=== PATIENT | female | born 1950 | race Caucasian/White ===

== ENCOUNTER → 2018-01-30 | Outpatient (CLI) | payer OTHER ==
[~2018-01-30] MED LIST: AMBIEN10 MG PO; BYSTOLIC10 MG PO; CLONIDINE HCL0.1 MG PO; GABAPENTIN300 MG PO; GLIPIZIDE5 MG PO; IOPAMIDOL 370 MG/ML 200 ML INFUS..BTL INJ ONE; LANTUS 3ML100 UNITS/ SC; LASIX20 MG PO; LEVOTHYROXINE50 MCG PO; LOSARTAN POTAS100 MG PO; METFORMIN HCL500 M2 PO; NORCO 5-325 TA1 EACH PO; PLAVIX75 MG PO; SIMVASTATIN40 MG PO; SODIUM CHLORIDE 0.9% 50ML 50 ML ONE; SPIRONOLACTONE25 MG PO; ZOFRAN ODT4 MG
[2018-01-30 08:27] LABS: BLOOD UREA NITROGEN 15 mg/dL (7-26); BUN/CREATININE RATIO 17 (6-25); CREATININE, SERUM 0.86 mg/dL (0.57-1.11); EST GLOMERULAR FILTRATION RATE > 60 ML/MIN (60-)
--- NOTE | 2018-01-31 11:46 | Diagnostic Imaging Report ---
History: Lightheaded Comparison studies: None Technique: Sagittal T2; axial DWI, FLAIR, MPGR, T1, Coronal FLAIR. Intravenous contrast: None Findings: Scalp: Normal in signal . No masses . Bone marrow: Normal in signal intensity. Extra-axial: No masses, no fluid collections. Brain sulci: Appropriate for age. Ventricles: Normal in size . No hydrocephalus . Parenchyma: Scattered T2/FLAIR hyperintensities of the periventricular and deep white matter No masses, hemorrhage, acute or chronic vascular insults. Suprasellar region: No abnormalities. Craniocervical junction: No abnormalities. Patent foramen magnum. No Chiari one malformation. Vessels: Normal flow-voids in the arteries and sinuses. Bilateral cataract surgery changes. IMPRESSION: 1. No acute abnormalities. 2. Mild chronic microvascular ischemic changes of the white matter. Mild age-appropriate volume loss. Signed by: DR James Reis M.D. on 01/31/2018 11:42 AM
--- NOTE | 2018-01-31 12:17 | Diagnostic Imaging Report ---
History:Lightheaded. Left ICA stroke, Comparison studies:MRI brain 01/30/2018 Technique: Axial images were obtained from the thoracic inlet. Coronal and sagittal images reconstructed from the axial data. Intravenous contrast: 100 cc of Omnipaque 300. Findings: Percentage of stenosis will be based on the NASCET criteria Aortic arch and major vessels: Patent. Nonstenotic atherosclerotic calcifications of the aortic arch. Common origin of the brachiocephalic trunk and left common carotid artery. Less than 10% stenosis of the left proximal brachiocephalic trunk secondary to calcified and noncalcified plaque. Less than 10% stenosis at the origin of the left common carotid artery. Common carotid arteries: Patent. Calcified plaque with less than 10% stenosis. Right internal carotid artery: Patent. Noncalcified plaque at the bulb with less than 20% stenosis nonstenotic atherosclerotic calcification at the distal cervical internal carotid artery. Atherosclerotic calcifications at the siphon with less than 30% stenosis at. Left internal carotid artery: Patent. Calcified plaque at the bulb results in 40-50% stenosis. Nonstenotic atherosclerotic calcification at the distal cervical internal carotid artery. Atherosclerotic calcification at the siphon with less than 20% stenosis. Hypoplastic right A1. Normal caliber of the left A1 and bilateral distal ACAs. Patent bilateral MCAs. Right vertebral artery: Patent. . Left vertebral artery: Patent. Punctate nonstenotic atherosclerotic calcification at the distal V1 and mid V2 segment. Basilar artery: Patent. No abnormalities. Posterior cerebral arteries: Patent. No abnormalities. Anatomical variants: Acom: Patent . Pcoms: Patent. Vertebral arteries: Col-dominant Centrilobular emphysematous changes of both lung apices. Uncinate processes and facet hypertrophy at C4-C5 and C5-C6 results in moderate right, mild left foraminal narrowing. IMPRESSION: Cervical CTA: 1. Moderate stenosis at the left carotid bulb. Other atherosclerotic calcifications at the neck arteries with mild stenosis as described above. Intracranial CTA: 1. No hemodynamically significant stenosis of the jackson of Dominguez. Signed by: DR James Reis M.D. on 01/31/2018 12:14 PM
== END ==
LOC: CT 07:24
PROVIDERS: ATTEND Psychiatry & Neurology Clinical Neurophysiology
DX: I63.232 Cerebral infarction due to unspecified occlusion or stenosis of left carotid arteries (principal)
CPT/HCPCS: 36415; 70496; 70498; 70551; 82565; 84520; Q9967

== ENCOUNTER 2018-07-18 04:15 | Emergency (ER) | payer OTHER ==
[~2018-07-18] VITALS: Ht 154.9 cm; Wt 68.0 kg
[~2018-07-18 04:15] MED LIST changes: -IOPAMIDOL 370 MG/ML 200 ML INFUS..BTL INJ ONE; -SODIUM CHLORIDE 0.9% 50ML 50 ML ONE
[2018-07-18] MEDS ORDERED: ACETAMINOPHEN 325 MG TAB PO ONE (04:30)
[2018-07-18 04:45] LABS: CLARITY,URINE CLOUDY (CLEAR); COLOR,URINE YELLOW (YELLOW)
[2018-07-18 04:46] LABS: BILIRUBIN,URINE NEGATIVE (NEGATIVE); KETONES,URINE NEGATIVE (NEGATIVE); LEUKOCYTE ESTERASE ,URINE 1+ (NEGATIVE); NITRITE,URINE POSITIVE (NEGATIVE); PROTEIN,URINE DIPSTICK 3+ (NEGATIVE); URINE UROBILINOGEN 0.2 mg/dL (0.2 - 1)
[2018-07-18 05:01] LABS: BACTERIA,URINE FEW /HPF; EPITHELIAL CELLS,URINE FEW /LPF; RBC,URINE >50 /HPF (0-5); TRANSITIONAL EPI CELLS,URINE FEW; WBC,URINE (MAN) >50 /HPF (0-5)
[2018-07-18 05:08] LABS: BASOPHILS % 0.3 % (0.0-1.0); EOSINOPHILS # (AUTO) 0.1 (0.0-0.4); EOSINOPHILS % 0.7 % (0.0-6.0); HEMOGLOBIN 10.8 g/dL (12.0-16.0); LYMPHOCYTES # (AUTO) 0.8 (1.0-3.2); LYMPHOCYTES % 8.7 % (18.0-39.1); MEAN CORPUSCULAR HEMOGLOBIN 28.5 pg (28-32); MEAN CORPUSCULAR HGB CONC 32.7 g/dL (31-35); MEAN CORPUSCULAR VOLUME 87.1 fL (81-99); MONOCYTES # (AUTO) 0.5 (0.2-0.8); MONOCYTES % 5.6 % (4.4-11.3); NEUTROPHILS # (AUTO) 8.1 (2.1-6.9); NEUTROPHILS % 84.1 % (38.7-80.0); PLATELET COUNT 221 x10e3/uL (140-360); RED BLOOD COUNT 3.79 x10e6/uL (3.6-5.1); RED CELL DISTRIBUTION WIDTH 14.2 % (11.7-14.4)
[2018-07-18] MEDS ORDERED: CEFTRIAXONE SOD 1 GM VIAL IV ONE (05:15)
[2018-07-18 05:38] LABS: ALBUMIN 3.5 g/dL (3.5-5.0); ALBUMIN/GLOBULIN RATIO 0.9 (0.8-2.0); ANION GAP 17.3 mmol/L (8-16); CALCIUM 9.4 mg/dL (8.4-10.2); CREATININE, SERUM 1.04 mg/dL (0.57-1.11); POTASSIUM 4.3 mmol/L (3.5-5.1)
[2018-07-18] MEDS ORDERED: CLONIDINE HCL 0.1 MG TAB PO ONE (06:00)
[2018-07-18 06:27] VITALS: BP 195/75
== END 2018-07-18 06:52 | disposition home or self-care (01) ==
LOC: ER 04:15
DX: R30.0 Dysuria (principal); N30.91 Cystitis, unspecified with hematuria; E11.9 Type 2 diabetes mellitus without complications; I10 Essential (primary) hypertension; I50.9 Heart failure, unspecified; E03.9 Hypothyroidism, unspecified; D64.9 Anemia, unspecified; E78.00 Pure hypercholesterolemia, unspecified
CPT/HCPCS: 36415; 80053; 81001; 85025; 87086; 87186; 99284; J0696

== ENCOUNTER 2018-08-13 08:25 | Inpatient (IN) | payer OTHER ==
[2018-08-12 11:26] LABS: BASOPHILS % 0.7 % (0.0-1.0); EOSINOPHILS # (AUTO) 0.1 (0.0-0.4); EOSINOPHILS % 2.2 % (0.0-6.0); HEMATOCRIT 35.9 % (34.2-44.1); HEMOGLOBIN 11.6 g/dL (12.0-16.0); LYMPHOCYTES % 23.3 % (18.0-39.1); MEAN CORPUSCULAR HEMOGLOBIN 28.4 pg (28-32); MEAN CORPUSCULAR HGB CONC 32.3 g/dL (31-35); MEAN CORPUSCULAR VOLUME 87.8 fL (81-99); MONOCYTES # (AUTO) 0.4 (0.2-0.8); NEUTROPHILS # (AUTO) 2.9 (2.1-6.9); NEUTROPHILS % 64.1 % (38.7-80.0); PLATELET COUNT 170 x10e3/uL (140-360); RED BLOOD COUNT 4.09 x10e6/uL (3.6-5.1); RED CELL DISTRIBUTION WIDTH 14.3 % (11.7-14.4)
[2018-08-12 11:39] LABS: INR 1.05; PARTIAL THROMBOPLASTIN TIME 27.1 seconds (23.8-35.5); PROTHROMBIN TIME 12.9 seconds (11.9-14.5)
[2018-08-12 11:47] LABS: ALBUMIN 3.6 g/dL (3.5-5.0); ANION GAP 17.9 mmol/L (8-16); CALCIUM 9.8 mg/dL (8.4-10.2); CREATININE, SERUM 1.04 mg/dL (0.57-1.11); POTASSIUM 4.9 mmol/L (3.5-5.1)
--- NOTE | 2018-08-12 12:04 | Diagnostic Imaging Report ---
EXAMINATION: CHEST 2 VIEWS INDICATION: Pre-op COMPARISON: None FINDINGS: TUBES and LINES: None. LUNGS: Lungs are well inflated. Lungs are clear. There is no evidence of pneumonia or pulmonary edema. PLEURA: No pleural effusion or pneumothorax. HEART AND MEDIASTINUM: Mild enlargement of the cardiomediastinal silhouette. BONES AND SOFT TISSUES: No acute osseous lesion. Soft tissues are unremarkable. UPPER ABDOMEN: No free air under the diaphragm. Surgical clips project over the upper abdomen. IMPRESSION: No acute radiographic abnormality. Signed by: Dr. Gurmeet Mays MD on 08/12/2018 12:00 PM
[~2018-08-13] VITALS: Ht 154.9 cm; Wt 72.6 kg
[2018-08-13] VITALS (46 sets, daily range): BP systolic 148–209; BP diastolic 53–97
[~2018-08-13 08:25] MED LIST changes: +AMLODIPINE BESYL5 MG PO; +ASPIRIN325 MG PO; +HYDRALAZINE HCL25 MG PO; +IRON PO; +LEVEMIR100 UNIT/1 SC; +LEVOXYL137 MCG PO; +TERAZOSIN HCL2 MG PO
[2018-08-13] MEDS ORDERED: LIDOCAINE HCL 2% LOCAL 20 ML VIAL ONE (11:58)
[2018-08-13] MEDS ORDERED: HEPARIN SOD/SOD CHLORIDE 2,000 ML ONE (11:58)
[2018-08-13] MEDS ORDERED: SODIUM CHLORIDE 0.9% 1000ML 1,000 ML ONE (11:58)
[2018-08-13] MEDS ORDERED: MIDAZOLAM HCL 2 MG/2 ML VIAL ONE (11:58)
[2018-08-13] MEDS ORDERED: FENTANYL CITRATE/PF 100MCG/2 ML INJ ONE (11:58)
[2018-08-13] MEDS ORDERED: IOPAMIDOL 370 MG/ML 200 ML INFUS..BTL INJ ONE ×2 (11:58→12:30)
[2018-08-13] MEDS ORDERED: BIVALIRUDIN 250 MG/VIAL IV ONE (12:29)
[2018-08-13] MEDS ORDERED: SODIUM CHLORIDE 0.9% 50ML 50 ML ONE (12:29)
[2018-08-13] MEDS ORDERED: NITROGLYCERIN/D5W 200 MCG/ML 250 ML ONE (12:34)
[2018-08-13] MEDS ORDERED: ASPIRIN 325 MG TAB ONE (13:11)
[2018-08-13] MEDS ORDERED: CLOPIDOGREL BISULFATE 75 MG TAB ONE (13:11)
[2018-08-13] MEDS ORDERED: ACETAMINOPHEN 325 MG TAB PO PRN ×2 (14:30→20:45)
[2018-08-13] MEDS ORDERED: NEBIVOLOL 10 MG TAB PO SCH (15:00)
[2018-08-13] MEDS ORDERED: HYDRALAZINE HCL 25 MG TAB PO SCH (15:00)
[2018-08-13] MEDS ORDERED: SODIUM CHLORIDE 0.9% 1000ML 1,000 ML IV SCH ×2 (15:00→15:15)
[2018-08-13] MEDS ORDERED: HYDRALAZINE HCL 20 MG/ML VIAL IV PRN (15:15)
[2018-08-13] MEDS ORDERED: FERROUS SULFATE 325 MG TAB PO SCH (16:00)
[2018-08-13] MEDS ORDERED: GLIPIZIDE 5 MG TAB PO SCH (16:30)
[2018-08-13] MEDS ORDERED: GABAPENTIN 300 MG CAP PO SCH (17:00)
[2018-08-13] MEDS ORDERED: CLONIDINE HCL 0.1 MG TAB PO SCH ×2 (17:00→21:00)
[2018-08-13] MEDS ORDERED: TERAZOSIN HCL 1 MG CAP PO SCH (17:00)
[2018-08-13] MEDS: HYDRALAZINE HCL 20 MG/ML VIAL IV PRN (19:09)
--- NOTE | 2018-08-13 20:04 | Operative Report ---
DATE OF PROCEDURE: August 13, 2018 PROCEDURES PERFORMED 1. Left heart catheterization. 2. Left coronary angiogram. 3. LV gram. 4. Stent placement in the left circumflex coronary artery. INDICATION: Abnormal stress test. History of CAD. BLOOD LOSS: About 8 mL. ANESTHESIA: 2% lidocaine for local anesthesia. Fentanyl and Versed for conscious sedation. DESCRIPTION OF PROCEDURE: After informed consent, patient was brought to the cardiac catheterization laboratory and placed on the table. Both groins were painted and draped in a sterile fashion. Lidocaine injected to the right groin for local anesthesia. The right femoral artery was accessed by Seldinger technique and a 5-Angolan sheath was placed in the right femoral artery. The left main artery was cannulated using a JL4 5-Angolan catheter. Coronary angiogram was performed and images obtained in multiple views. The right coronary artery was cannulated using a 3DRC 5-Angolan catheter. Coronary angiogram was performed and images obtained in multiple views. LV gram was performed using a pigtail catheter. After viewing the images, it was decided to intervene on the 90% calcified mid left circumflex lesion. The 5-Angolan sheath was exchanged for a 6-Angolan sheath over a guidewire. The left main was cannulated using a XP3.5 6-Angolan guide. A [employer] wire was manipulated and placed in the distal left circumflex artery. A 2.5 x 12 mm balloon was advanced over the wire and attempts were made to cross the lesion. However, the balloon would not advance beyond the proximal left circumflex. The balloon was removed and a 1.5 mm x 12 mm Emerge balloon was advanced over the wire and the lesion was dilated multiple times at 8 to 10 atmospheres for about 20 to 25 seconds. The balloon was removed and subsequently a 2.5 x 15 mm Emerge balloon was advanced over the wire and the lesion was dilated at 8 atmospheres for about 20 seconds. Then at 3 x 18 mm Resolute Juarez drug-eluting stent was deployed across the lesion at 12 atmospheres for about 20 seconds. This was the normal pressure. All this was performed under constant fluoroscopic guidance. Patient was given Angiomax, aspirin and clopidogrel during the procedure. The patient had a right coronary artery lesion, however, the lesion was not intervened at the current time due to concern about contrast burden in an elderly lady. Patient tolerated the procedure without any complications. REPORT LEFT MAIN: This is of normal caliber with luminal irregularities. LEFT ANTERIOR DESCENDING: Normal caliber with luminal irregularities. LEFT CIRCUMFLEX: Normal caliber. Has a 90% calcified lesion in the mid left circumflex. RIGHT CORONARY ARTERY: Normal caliber. The stents in the mid and distal right coronary artery are patent. There is a lesion between the stents which appears to be about 90%. LV-GRAM: It is a poor-quality LV due to hand injection. Overall EF is about 50%. Balloon used is a 1.5 x 12 mm Emerge, a 2.5 x 12/15 mm Emerge. Stent used is a 3 x 18 mm Resolute Juarez drug-eluting stent which was deployed across the mid left circumflex. There was 0% residual stenosis and GUERA-3 flow noted. PLAN: PCI of the right coronary artery in a few weeks. Job#: [id number]
[2018-08-13] MEDS: HYDRALAZINE HCL 25 MG TAB PO SCH (20:33)
[2018-08-13] MEDS: CLONIDINE HCL 0.1 MG TAB PO SCH (20:34)
[2018-08-13] MEDS: GABAPENTIN 300 MG CAP PO SCH (20:43)
[2018-08-13] MEDS ORDERED: SIMVASTATIN 40 MG TAB PO SCH (21:00)
[2018-08-13] MEDS ORDERED: INSULIN DETEMIR 100 UNIT/ML PEN SQ SCH (21:00)
[2018-08-13] MEDS: GLIPIZIDE 5 MG TAB PO SCH (21:22)
[2018-08-13] MEDS: TERAZOSIN HCL 1 MG CAP PO SCH (21:22)
[2018-08-13] MEDS ORDERED: LORAZEPAM INJ 2 MG/ML VIAL IV NR (21:30)
[2018-08-14] VITALS (53 sets, daily range): BP systolic 125–204; BP diastolic 53–100
[2018-08-14] MEDS: HYDRALAZINE HCL 20 MG/ML VIAL IV PRN ×2 (02:13→12:20)
[2018-08-14 04:38] LABS: BASOPHILS % 0.2 % (0.0-1.0); EOSINOPHILS # (AUTO) 0.1 (0.0-0.4); EOSINOPHILS % 1.4 % (0.0-6.0); HEMATOCRIT 29.6 % (34.2-44.1); HEMOGLOBIN 9.8 g/dL (12.0-16.0); LYMPHOCYTES # (AUTO) 0.7 (1.0-3.2); LYMPHOCYTES % 16.2 % (18.0-39.1); MEAN CORPUSCULAR HEMOGLOBIN 28.3 pg (28-32); MEAN CORPUSCULAR HGB CONC 33.1 g/dL (31-35); MEAN CORPUSCULAR VOLUME 85.5 fL (81-99); MONOCYTES # (AUTO) 0.4 (0.2-0.8); NEUTROPHILS % 71.5 % (38.7-80.0); PLATELET COUNT 137 x10e3/uL (140-360); RED BLOOD COUNT 3.46 x10e6/uL (3.6-5.1); RED CELL DISTRIBUTION WIDTH 14.3 % (11.7-14.4)
[2018-08-14 04:58] LABS: ANION GAP 13.8 mmol/L (8-16); BLOOD UREA NITROGEN 18 mg/dL (7-26); BUN/CREATININE RATIO 21 (6-25); CALCIUM 8.4 mg/dL (8.4-10.2); CARBON DIOXIDE 25 mmol/L (22-29); CHLORIDE 105 mmol/L (98-107); CHOL/HDL RATIO 3.4 (3.0-3.6); CHOLESTEROL 118 MD/DL (0-199); CREATININE, SERUM 0.86 mg/dL (0.57-1.11); EST GLOMERULAR FILTRATION RATE > 60 ML/MIN (60-); GLUCOSE 250 mg/dL (74-118); HDL CHOLESTEROL 35 MG/DL (40-60); LDL CHOLESTEROL 32 MG/DL (60-130); POTASSIUM 3.8 mmol/L (3.5-5.1); SODIUM 140 mmol/L (136-145); TRIGLYCERIDES 257 MG/DL (0-149)
[2018-08-14] MEDS ORDERED: LEVOTHYROXINE SODIUM 100 MCG TAB PO SCH (06:00)
[2018-08-14] MEDS ORDERED: LEVOTHYROXINE SODIUM 75 MCG TAB PO SCH (06:00)
[2018-08-14] MEDS: HYDRALAZINE HCL 25 MG TAB PO SCH (07:36)
[2018-08-14] MEDS: GLIPIZIDE 5 MG TAB PO SCH (07:37)
[2018-08-14] MEDS: GABAPENTIN 300 MG CAP PO SCH (07:37)
[2018-08-14] MEDS: TERAZOSIN HCL 1 MG CAP PO SCH (07:37)
[2018-08-14] MEDS: CLONIDINE HCL 0.1 MG TAB PO SCH (07:38)
[2018-08-14] MEDS ORDERED: CLOPIDOGREL BISULFATE 75 MG TAB PO SCH ×2 (09:00)
[2018-08-14] MEDS ORDERED: ASPIRIN 325 MG TAB EC PO SCH ×2 (09:00)
[2018-08-14] MEDS ORDERED: FERROUS SULFATE 325 MG TAB PO SCH (09:00)
[2018-08-14] MEDS ORDERED: NEBIVOLOL 10 MG TAB PO SCH (09:00)
[2018-08-14] MEDS ORDERED: AMLODIPINE BESYLATE 5 MG TAB PO SCH ×2 (09:00)
[2018-08-14] MEDS ORDERED: HYDRALAZINE HCL 20 MG/ML VIAL IV ONE (11:00)
[2018-08-14] MEDS ORDERED: HYDRALAZINE HCL 20 MG/ML VIAL IV STA (12:19)
[2018-08-14] MEDS ORDERED: LABETALOL HCL 5 MG/ML 20ML VIAL IV STA (13:47)
[2018-08-14] MEDS ORDERED: AMLODIPINE BESYLATE 5 MG TAB PO ONE (14:00)
[2018-08-14] MEDS ORDERED: ALPRAZOLAM 0.25 MG TAB PO ONE (14:30)
[2018-08-14] MEDS ORDERED: SPIRONOLACTONE 25 MG TAB PO SCH (14:30)
[2018-08-14] MEDS ORDERED: GABAPENTIN 300 MG CAP PO SCH (21:00)
[2018-08-15] MEDS ORDERED: LOSARTAN POTASSIUM 100 MG TAB PO SCH (09:00)
== END 2018-08-14 18:28 | disposition home or self-care (01) | DRG 247 ==
LOC: CATH LAB 08:25 → PACU V 13:55 → ICU 14:10
PROC: 027034Z Dilation of Coronary Artery, One Artery with Drug-eluting Intraluminal Device, Percutaneous Approach (ICD-10-PCS; principal; 2018-08-13)
PROC: 4A023N7 Measurement of Cardiac Sampling and Pressure, Left Heart, Percutaneous Approach (ICD-10-PCS; 2018-08-13)
PROC: B2111ZZ Fluoroscopy of Multiple Coronary Arteries using Low Osmolar Contrast (ICD-10-PCS; 2018-08-13)
PROC: B2151ZZ Fluoroscopy of Left Heart using Low Osmolar Contrast (ICD-10-PCS; 2018-08-13)
DX: R94.39 Abnormal result of other cardiovascular function study (principal)
CPT/HCPCS: 36415; 71046; 80048; 80053; 80061; 82948; 85025; 85610; 85730; 92928; 93005; 93458; 93971; C1874; J0360; J0583; J2001; J2060; J2250; J7030; Q9967

== ENCOUNTER 2018-09-10 06:26 | Inpatient (IN) | payer OTHER ==
[2018-09-08 15:02] LABS: BASOPHILS % 0.2 % (0.0-1.0); EOSINOPHILS # (AUTO) 0.1 (0.0-0.4); EOSINOPHILS % 2.2 % (0.0-6.0); HEMOGLOBIN 10.4 g/dL (12.0-16.0); LYMPHOCYTES # (AUTO) 1.3 (1.0-3.2); MEAN CORPUSCULAR HEMOGLOBIN 28.2 pg (28-32); MEAN CORPUSCULAR HGB CONC 31.5 g/dL (31-35); MEAN CORPUSCULAR VOLUME 89.4 fL (81-99); MONOCYTES # (AUTO) 0.5 (0.2-0.8); MONOCYTES % 10.2 % (4.4-11.3); NEUTROPHILS # (AUTO) 2.6 (2.1-6.9); NEUTROPHILS % 57.5 % (38.7-80.0); PLATELET COUNT 208 x10e3/uL (140-360); RED BLOOD COUNT 3.69 x10e6/uL (3.6-5.1); RED CELL DISTRIBUTION WIDTH 15.2 % (11.7-14.4)
[2018-09-08 15:15] LABS: INR 0.92; PROTHROMBIN TIME 13.2 seconds (11.9-14.5)
[2018-09-08 15:16] LABS: PARTIAL THROMBOPLASTIN TIME 29.1 seconds (23.8-35.5)
[2018-09-08 15:24] LABS: ALBUMIN 3.8 g/dL (3.5-5.0); CALCIUM 9.6 mg/dL (8.4-10.2); CREATININE, SERUM 0.96 mg/dL (0.57-1.11)
[~2018-09-10] VITALS: Ht 154.9 cm; Wt 72.6 kg
[2018-09-10] VITALS (15 sets, daily range): BP systolic 169–197; BP diastolic 65–86
[2018-09-10] MEDS ORDERED: MIDAZOLAM HCL 2 MG/2 ML VIAL ONE (07:15)
[2018-09-10] MEDS ORDERED: FENTANYL CITRATE/PF 100MCG/2 ML INJ ONE (07:15)
[2018-09-10] MEDS ORDERED: HEPARIN SOD (PORCINE) 1000 UNIT/ML 30ML ONE (07:15)
[2018-09-10] MEDS ORDERED: IOPAMIDOL 370 MG/ML 200 ML INFUS..BTL INJ ONE (07:16)
[2018-09-10] MEDS ORDERED: SODIUM CHLORIDE 0.9% 1000ML 1,000 ML ONE (07:16)
[2018-09-10] MEDS ORDERED: NITROGLYCERIN/D5W 200 MCG/ML 250 ML ONE (07:16)
[2018-09-10] MEDS ORDERED: HEPARIN SOD/SOD CHLORIDE 2,000 ML ONE (07:16)
[2018-09-10] MEDS ORDERED: LIDOCAINE HCL 1% LOCAL INJ 20 ML VIAL ONE (07:16)
[2018-09-10] MEDS ORDERED: BIVALRIUDIN 250 MG/VIAL VIAL IV ONE (07:49)
[2018-09-10] MEDS ORDERED: SODIUM CHLORIDE 0.9% 50ML 50 ML ONE (07:50)
[2018-09-10] MEDS ORDERED: HYDRALAZINE HCL 20 MG/ML VIAL ONE (07:59)
[2018-09-10] MEDS ORDERED: CLOPIDOGREL BISULFATE 75 MG TAB ONE (08:42)
[2018-09-10] MEDS ORDERED: ASPIRIN 325 MG TAB ONE (08:43)
[2018-09-10] MEDS: HYDRALAZINE HCL 25 MG TAB PO SCH (11:37)
[2018-09-10] MEDS: TERAZOSIN HCL 1 MG CAP PO SCH (11:38)
[2018-09-10] MEDS: CLONIDINE HCL 0.1 MG TAB PO SCH ×2 (11:38→20:25)
[2018-09-10] MEDS: GABAPENTIN 300 MG CAP PO SCH ×2 (11:38→20:26)
[2018-09-10] MEDS ORDERED: GLIPIZIDE 5 MG TAB PO SCH ×2 (12:00→17:45)
[2018-09-10] MEDS ORDERED: HYDRALAZINE HCL 20 MG/ML VIAL IV ONE (12:15)
[2018-09-10] MEDS ORDERED: HYDRALAZINE HCL 20 MG/ML VIAL IV PRN (17:30)
[2018-09-10] MEDS ORDERED: HYDROCODONE/APAP 10MG-325MG TAB PO PRN (18:15)
[2018-09-10] MEDS ORDERED: SIMVASTATIN 40 MG TAB PO SCH (21:00)
--- NOTE | 2018-09-10 22:58 | Operative Report ---
DATE OF PROCEDURE: September 10, 2018 PROCEDURES: 1. Left heart catheterization. 2. Selective coronary angiogram. 3. Percutaneous coronary intervention/stent placement of the right coronary artery. INDICATION: Coronary artery disease. ANESTHESIA: 2% lidocaine for local anesthesia, fentanyl and Versed for conscious sedation. BLOOD LOSS: 8 mL. DESCRIPTION OF PROCEDURE: After informed consent, patient was brought to the cardiac catheterization laboratory and placed on the table. Both groins were painted and draped in a sterile fashion. Lidocaine was injected in the right groin for local anesthesia. Right femoral artery was accessed by Seldinger technique, and a 6-Argentine sheath was placed in the right femoral artery. Patient had hematoma of about 2 x 1 cm from previous catheterization. The left main was cannulated using a JL4 5-Argentine catheter. Coronary angiogram was performed and images were obtained in multiple views. The right coronary artery was cannulated using 3DRC 5-Argentine catheter. Coronary angiogram was performed and images obtained in multiple views. The right coronary artery was cannulated initially using an AL 0.75, 6-Argentine guide. However, there was severe dampening of pressure and so the guide had to be removed. Attempts were made to cannulate the right coronary artery using 6-Argentine hockey stick guide. A stable position of the guide could not be obtained and so right coronary artery was cannulated using a JR4 6-Argentine guide. A [employer] wire was manipulated and placed in the distal right coronary artery. 95% lesion in the mid to distal right coronary artery was dilated using a 2.5 x 8 mm Emerge balloon. Multiple dilatations were performed. Subsequently, 2.5 x 16 mm Synergy [employer] drug-eluting stent was deployed across the lesion at 16 atmospheres for about 25 to 30 seconds. Subsequently, a MI [employer] apex noncompliant balloon was advanced over a guidewire into the right coronary artery, however, the guide would not stay stable. So no post dilatation was performed. Patient was given aspirin, Plavix, and Angiomax during the procedure. Patient tolerated the procedure without any complications. REPORT: LEFT MAIN: Is of normal caliber and no significant stenosis. LEFT ANTERIOR DESCENDING: Normal caliber with luminal irregularities. LEFT CIRCUMFLEX: Normal caliber and there is about 20% to 30% mid lesion. The stent in the proximal left circumflex is patent. RIGHT CORONARY ARTERY: Normal caliber with luminal irregularities and a 95% mid to distal lesion between 2 previously placed stents. BALLOONS USED: 2.5 x 8 mm Emerge. STENTS USED: 2.5 x 16 mm [employer] Synergy drug-eluting stent. There was less than 5% residual stenosis and GUERA-3 flow is noted. Job#: [id number]
[2018-09-11] MEDS: TERAZOSIN HCL 1 MG CAP PO SCH (00:34)
[2018-09-11] MEDS: HYDRALAZINE HCL 25 MG TAB PO SCH (00:34)
[2018-09-11 03:00] VITALS: BP 177/66
[2018-09-11 04:58] LABS: BASOPHILS % 0.2 % (0.0-1.0); EOSINOPHILS # (AUTO) 0.1 (0.0-0.4); EOSINOPHILS % 2.6 % (0.0-6.0); HEMATOCRIT 27.3 % (34.2-44.1); HEMOGLOBIN 8.6 g/dL (12.0-16.0); LYMPHOCYTES # (AUTO) 0.9 (1.0-3.2); LYMPHOCYTES % 22.3 % (18.0-39.1); MEAN CORPUSCULAR HEMOGLOBIN 27.7 pg (28-32); MEAN CORPUSCULAR HGB CONC 31.5 g/dL (31-35); MEAN CORPUSCULAR VOLUME 88.1 fL (81-99); MONOCYTES # (AUTO) 0.4 (0.2-0.8); MONOCYTES % 10.3 % (4.4-11.3); NEUTROPHILS # (AUTO) 2.6 (2.1-6.9); NEUTROPHILS % 63.4 % (38.7-80.0); PLATELET COUNT 183 x10e3/uL (140-360); RED CELL DISTRIBUTION WIDTH 15.1 % (11.7-14.4)
[2018-09-11 05:16] LABS: ANION GAP 13.7 mmol/L (8-16); BLOOD UREA NITROGEN 14 mg/dL (7-26); BUN/CREATININE RATIO 16 (6-25); CALCIUM 8.7 mg/dL (8.4-10.2); CARBON DIOXIDE 23 mmol/L (22-29); CHLORIDE 105 mmol/L (98-107); CREATININE, SERUM 0.86 mg/dL (0.57-1.11); EST GLOMERULAR FILTRATION RATE > 60 ML/MIN (60-); GLUCOSE 185 mg/dL (74-118); POTASSIUM 3.7 mmol/L (3.5-5.1); SODIUM 138 mmol/L (136-145)
[2018-09-11] MEDS ORDERED: LEVOTHYROXINE SODIUM 112 MCG TAB PO SCH (06:00)
[2018-09-11] MEDS ORDERED: LEVOTHYROXINE SODIUM 25 MCG TABLET PO SCH (06:00)
[2018-09-11 07:20] VITALS: BP 175/69
[2018-09-11 07:41] VITALS: BP 175/69
[2018-09-11] MEDS ORDERED: SPIRONOLACTONE 25 MG TAB PO SCH (09:00)
[2018-09-11] MEDS ORDERED: AMLODIPINE BESYLATE 5 MG TAB PO SCH (09:00)
[2018-09-11] MEDS ORDERED: CLOPIDOGREL BISULFATE 75 MG TAB PO SCH (09:00)
[2018-09-11] MEDS ORDERED: INSULIN DETEMIR 100 UNIT/ML PEN SQ SCH (09:00)
[2018-09-11] MEDS ORDERED: NEBIVOLOL 10 MG TAB PO SCH (09:00)
[2018-09-11] MEDS ORDERED: ASPIRIN 325 MG TAB PO SCH (09:00)
[2018-09-11] MEDS ORDERED: LOSARTAN POTASSIUM 100 MG TAB PO SCH (09:00)
[2018-09-11] MEDS ORDERED: FERROUS SULFATE 325 MG TAB PO SCH (09:00)
--- NOTE | 2018-10-29 09:26 | Discharge Summary ---
DISCHARGE DIAGNOSIS: Coronary artery disease, status post stent placement in the right coronary artery. HISTORY OF PRESENTING ILLNESS: Ms. Valdez was brought in as an outpatient for cardiac catheterization on the . She underwent cardiac catheterization, which revealed a significant lesion in her right coronary artery of about 95%. She underwent stent placement to the right coronary artery. She tolerated the procedure fine. She had a stent in her left circumflex previously, which was patent. Patient was kept overnight, she did well, had no chest pain. Patient is being discharged and she would follow up at the office. CONDITION ON DISCHARGE: Stable. ACTIVITY ON DISCHARGE: Patient is advised not to exert herself, run, jump, jog, or lift for the next week. MEDICATIONS: See list. DIET: Cardiac diet. RECOMMENDATIONS: 1. Patient is advised to take her medications as recommended. 2. Patient is to follow up at the office in 1 week. Should she have any pain or bleeding, she is advised to give us a call or get to the emergency room. VELMA MOONEY MD Job#: [id number]
== END 2018-09-11 09:11 | disposition home or self-care (01) | DRG 247 ==
LOC: CATH LAB 06:26 → PACU V 09:45 → IMCU 10:26
PROC: 4A023N7 Measurement of Cardiac Sampling and Pressure, Left Heart, Percutaneous Approach (ICD-10-PCS; principal; 2018-09-10)
PROC: 027034Z Dilation of Coronary Artery, One Artery with Drug-eluting Intraluminal Device, Percutaneous Approach (ICD-10-PCS; 2018-09-10)
PROC: B2111ZZ Fluoroscopy of Multiple Coronary Arteries using Low Osmolar Contrast (ICD-10-PCS; 2018-09-10)
DX: I25.10 Atherosclerotic heart disease of native coronary artery without angina pectoris (principal); I10 Essential (primary) hypertension; Z95.5 Presence of coronary angioplasty implant and graft; Z79.02 Long term (current) use of antithrombotics/antiplatelets; Z79.82 Long term (current) use of aspirin; Z79.4 Long term (current) use of insulin
CPT/HCPCS: 36415; 80048; 80053; 82948; 85025; 85610; 85730; 92920; 92928; 93005; 93454; C1766; C1874; J0360; J0583; J1644; J2001; J2250; J7030; Q9967

== ENCOUNTER 2019-01-18 12:13 | Observation (INO) | payer MEDICARE, OTHER ==
[~2019-01-18] VITALS: Ht 154.9 cm; Wt 68.3 kg
[2019-01-18] MEDS ORDERED: ASPIRIN 81 MG CHEW TAB PO ONE (12:30)
[2019-01-18 12:57] LABS: BASOPHILS % 0.4 % (0.0-1.0); EOSINOPHILS # (AUTO) 0.1 (0.0-0.4); EOSINOPHILS % 1.7 % (0.0-6.0); HEMATOCRIT 30.7 % (34.2-44.1); HEMOGLOBIN 9.9 g/dL (12.0-16.0); LYMPHOCYTES # (AUTO) 1.4 (1.0-3.2); LYMPHOCYTES % 25.6 % (18.0-39.1); MEAN CORPUSCULAR HEMOGLOBIN 28.5 pg (28-32); MEAN CORPUSCULAR HGB CONC 32.2 g/dL (31-35); MEAN CORPUSCULAR VOLUME 88.5 fL (81-99); MONOCYTES # (AUTO) 0.5 (0.2-0.8); MONOCYTES % 8.3 % (4.4-11.3); NEUTROPHILS # (AUTO) 3.5 (2.1-6.9); NEUTROPHILS % 63.6 % (38.7-80.0); PLATELET COUNT 200 x10e3/uL (140-360); RED BLOOD COUNT 3.47 x10e6/uL (3.6-5.1); RED CELL DISTRIBUTION WIDTH 15.4 % (11.7-14.4)
--- NOTE | 2019-01-18 13:10 | Diagnostic Imaging Report ---
EXAMINATION: CHEST SINGLE (PORTABLE) INDICATION: Chest pain, hypotension. COMPARISON: Chest radiograph 08/12/18. FINDINGS: TUBES and LINES: None. LUNGS: Lungs are well inflated. Lungs are clear. There is no evidence of pneumonia or pulmonary edema. PLEURA: No pleural effusion or pneumothorax. HEART AND MEDIASTINUM: The cardiomediastinal silhouette is mildly enlarged. Atherosclerotic calcification of the aortic arch. BONES AND SOFT TISSUES: No acute osseous abnormality. UPPER ABDOMEN: No free air under the diaphragm. IMPRESSION: No acute radiographic abnormality. Mild cardiomegaly. Signed by: Dr. Gurmeet Mays MD on 01/18/2019 1:07 PM
[2019-01-18] MEDS ORDERED: NIFEDIPINE ER30 M1 PO (13:13)
[2019-01-18 13:14] LABS: INR 0.87; PROTHROMBIN TIME 12.7 seconds (11.9-14.5)
[2019-01-18 13:15] LABS: PARTIAL THROMBOPLASTIN TIME 30.8 seconds (23.8-35.5)
[2019-01-18 13:19] LABS: CLARITY,URINE HAZY (CLEAR); COLOR,URINE YELLOW (YELLOW)
[2019-01-18 13:20] LABS: ALBUMIN 3.7 g/dL (3.5-5.0); ALBUMIN/GLOBULIN RATIO 1.2 (0.8-2.0); CALCIUM 9.2 mg/dL (8.4-10.2); CREATININE, SERUM 1.45 mg/dL (0.57-1.11); MAGNESIUM 1.4 MG/DL (1.3-2.1)
[2019-01-18 13:20] LABS: BACTERIA,URINE FEW /HPF; BILIRUBIN,URINE NEGATIVE (NEGATIVE); EPITHELIAL CELLS,URINE MODERATE /LPF; KETONES,URINE NEGATIVE (NEGATIVE); LEUKOCYTE ESTERASE ,URINE TRACE (NEGATIVE); NITRITE,URINE NEGATIVE (NEGATIVE); PROTEIN,URINE DIPSTICK 3+ (NEGATIVE); URINE UROBILINOGEN 0.2 mg/dL (0.2 - 1); WBC,URINE (MAN) 0-5 /HPF (0-5)
[2019-01-18 13:40] LABS: THYROID STIMULATING HORMONE 2.692 uIU/mL (0.350-4.940)
[2019-01-18] MEDS ORDERED: SODIUM CHLORIDE 0.9% 1000ML 1,000 ML IV STA (13:42)
--- NOTE | 2019-01-18 13:55 | NUR ---
NOTIFIED DR ANGELO GLUCOSE 270, NO NEW ORDERS NOTED AT THIS TIME.
[2019-01-18] MEDS ORDERED: ONDANSETRON HCL INJ 2MG/ML 2ML 2 MG/ML VIAL IV PRN (15:15)
[2019-01-18] MEDS ORDERED: DEXTROSE 50% SYRINGE 50 ML IV PRN (15:15)
[2019-01-18] MEDS: INSULIN LISPRO 100 UNIT/1 ML 3ML VIAL SQ SCH ×2 (16:40→20:29)
[2019-01-18] MEDS: METOPROLOL TARTRATE 25 MG TAB PO SCH (17:24)
[2019-01-18] MEDS: SODIUM CHLORIDE 0.9% 1000ML 1,000 ML IV SCH ×3 (17:24→20:31)
[2019-01-18 17:59] VITALS: BP 158/67
[2019-01-18 18:04] VITALS: BP 158/67
[2019-01-18 18:36] VITALS: BP 158/67
[2019-01-18 19:40] LABS: CREATINE KINASE MB 0.9 ng/mL (0-5.0)
[2019-01-18 20:00] VITALS: BP 136/65
[2019-01-18 22:59] VITALS: BP 136/65
[2019-01-19] VITALS (8 sets, daily range): BP systolic 172–229; BP diastolic 74–88
[2019-01-19] MEDS: HYDRALAZINE HCL 20 MG/ML VIAL IV PRN ×3 (01:38→23:21)
[2019-01-19 05:34] LABS: BASOPHILS % 0.5 % (0.0-1.0); EOSINOPHILS # (AUTO) 0.1 (0.0-0.4); EOSINOPHILS % 2.1 % (0.0-6.0); HEMATOCRIT 29.3 % (34.2-44.1); HEMOGLOBIN 9.3 g/dL (12.0-16.0); LYMPHOCYTES # (AUTO) 0.9 (1.0-3.2); LYMPHOCYTES % 24.5 % (18.0-39.1); MEAN CORPUSCULAR HEMOGLOBIN 28.2 pg (28-32); MEAN CORPUSCULAR HGB CONC 31.7 g/dL (31-35); MEAN CORPUSCULAR VOLUME 88.8 fL (81-99); MONOCYTES # (AUTO) 0.3 (0.2-0.8); MONOCYTES % 8.5 % (4.4-11.3); NEUTROPHILS # (AUTO) 2.4 (2.1-6.9); NEUTROPHILS % 64.1 % (38.7-80.0); PLATELET COUNT 171 x10e3/uL (140-360); RED CELL DISTRIBUTION WIDTH 15.4 % (11.7-14.4)
[2019-01-19 06:06] LABS: CREATINE KINASE MB 0.9 ng/mL (0-5.0)
[2019-01-19 06:28] LABS: ANION GAP 12.8 mmol/L (8-16); BLOOD UREA NITROGEN 17 mg/dL (7-26); BUN/CREATININE RATIO 19 (6-25); CALCIUM 8.9 mg/dL (8.4-10.2); CARBON DIOXIDE 25 mmol/L (22-29); CHLORIDE 106 mmol/L (98-107); CREATININE, SERUM 0.91 mg/dL (0.57-1.11); EST GLOMERULAR FILTRATION RATE > 60 ML/MIN (60-); GLUCOSE 130 mg/dL (74-118); POTASSIUM 3.8 mmol/L (3.5-5.1); SODIUM 140 mmol/L (136-145)
[2019-01-19] MEDS: METOPROLOL TARTRATE 25 MG TAB PO SCH (08:45)
[2019-01-19] MEDS: INSULIN LISPRO 100 UNIT/1 ML 3ML VIAL SQ SCH ×4 (08:53→21:30)
[2019-01-19] MEDS ORDERED: NIFEDIPINE CR 30 MG TAB PO SCH (09:00)
--- NOTE | 2019-01-19 10:35 | NUR ---
SOCIAL WORK INITIAL ASSESSMENT Host to bedside to discuss plan of care with patient/family. CM/SW role and care transitions discussed. Anticipated discharge plan discussed along with duration of care. CM/SW discussed patients right to make decisions in care. CM/SW work hours given. 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 Name and number was also written on the patients whiteboard. Patient verbalized understanding of discussion. CM will follow-up with ongoing discharge and transition of care needs.
--- NOTE | 2019-01-19 11:30 | NUR ---
PATIENT BP TAKEN MANUALLY AND READING @ 230/93. CALL PLACED TO DR. SHERIFF. VOICE MESSAGE LEFT. AWAITING CALL BACK. CALL PLACED TO DR. SCHROEDER REGARDING ELEVATED BP. AWAITING CALL BACK.
--- NOTE | 2019-01-19 11:40 | NUR ---
SPOKE WITH DR. SHERIFF REGARDING ELEVATED BP. INSTRUCTED "I'M PUTTING ORDERS IN NOW".
[2019-01-19] MEDS ORDERED: NEBIVOLOL 10 MG TAB PO SCH (12:00)
--- NOTE | 2019-01-19 12:00 | NUR ---
SPOKE WITH DR. ROBLES (BRAND SALES MANAGER FOR DR. SCHROEDER) REGARDING ELEVATED BP OF 230/93. MD INSTRUCTED TO GIVE ONE TIME DOSE OF 20MG OF LABETALOL IV STAT AND CALL BACK IF BP DOES NOT DECREASE.
[2019-01-19] MEDS ORDERED: LABETALOL HCL 20 MG/4 ML SYRINGE IV ONE (12:30)
[2019-01-19] MEDS ORDERED: NIFEDIPINE CR 30 MG TAB PO ONE (12:30)
--- NOTE | 2019-01-19 12:45 | NUR ---
RECHECKED PATIENT BP MANUALLY. NOW READING 190/73.
[2019-01-19] MEDS: GABAPENTIN 300 MG CAP PO SCH ×2 (12:54→23:20)
--- NOTE | 2019-01-19 12:55 | NUR ---
DR. SHERIFF ON FLOOR TO SEE PATIENT. MD INSTRUCTED TO GIVE THE ONE DOSE OF BYSTOLIC TODAY AND DISCONTINUE FURTHER DOSAGE.
[2019-01-19 14:10] LABS: CREATINE KINASE MB 0.8 ng/mL (0-5.0)
[2019-01-19] MEDS ORDERED: VALSARTAN 160 MG TAB PO ONE (15:00)
[2019-01-19] MEDS ORDERED: VALSARTAN 160 MG TAB PO SCH (15:00)
[2019-01-19] MEDS: METOPROLOL TARTRATE 50 MG TAB PO SCH (17:39)
--- NOTE | 2019-01-19 19:00 | NUR ---
Report received and rounds completed. In bed watching TV, no complaints or concerns at this time.
[2019-01-19] MEDS ORDERED: SIMVASTATIN 40 MG TAB PO SCH (21:00)
[2019-01-19] MEDS ORDERED: GLIPIZIDE 5 MG TAB PO SCH (21:00)
[2019-01-19] MEDS: NIFEDIPINE CR 30 MG TAB PO SCH (21:34)
--- NOTE | 2019-01-19 22:00 | NUR ---
Resting in bed eyes closed, resp even and unlabored. No distress or discomfort noted. Call light within reach. Will continue to monitor.
--- NOTE | 2019-01-19 22:16 | History and Physical ---
The patient is on observation. PRIMARY CARE PHYSICIAN: Dr. Meera Mcgill. CHIEF COMPLAINT: Low blood pressure, dizziness. HISTORY: A 68-year-old female on extensive multiple hypertensive medications including nifedipine XL, clonidine, furosemide, hydralazine, losartan, Bystolic sample medication from Dr. Mcgill' office and spironolactone. The patient came in with systolic blood pressure in the 105/44 and heart rate was 80. The patient was having dizziness and weakness. Blood pressure adjustment was made and then subsequently her blood pressure jumped up to over 200. The patient is otherwise stable at this time. She does not complain of any chest pain or shortness of breath. The patient is placed on observation for medication adjustment. PAST MEDICAL HISTORY: Rxmwbzese-yu-snbgocb hypertension, diabetes type 2, hypothyroidism, dyslipidemia, diabetic neuropathy, coronary artery disease with previous stent placement, and insomnia. PAST SURGICAL HISTORY: Cholecystectomy, appendectomy, hysterectomy, and coronary stent. SOCIAL HISTORY: The patient does not smoke or use alcohol, no recreational drugs. ALLERGIES: TO TRAMADOL AND TYLENOL NO. 3. HOME MEDICATIONS: Aspirin, clonidine 0.1 mg three times a day, Plavix, Lasix 40 mg daily, gabapentin, glipizide, hydralazine, insulin, Levemir, levothyroxine, losartan, metformin, Bystolic, nifedipine ER 60 mg daily, simvastatin, Aldactone 50 mg daily, and iron supplement. REVIEW OF SYSTEMS: Unremarkable. PHYSICAL EXAMINATION: VITAL SIGNS: Temperature is 98, blood pressure 105/44 on admission and now is 190/73, pulse rate is 76-85, and respirations 18. GENERAL: The patient is not in acute distress. She is awake. HEENT: Normocephalic, atraumatic. Anicteric. NECK: Supple grossly. PULMONARY: Clear. CARDIOVASCULAR: Regular rate and rhythm. ABDOMEN: Soft and unremarkable. EXTREMITIES: No cyanosis or edema. NEUROLOGIC: No gross focal deficit. LABORATORY DATA: Sodium is 140, potassium 3.8, chloride 106, bicarb 25, BUN is 17, creatinine 0.9, glucose 130. WBC 3.7, hemoglobin 9.3, hematocrit 29.3, and platelets 171. IMPRESSION: 1. Labile hypertension, episode of hypotension secondary to multiple hypertensive medications. 2. Hypertensive urgency, off medication. 3. Qeewuppfx-re-siipcpu hypertension, overall chronically. PLAN: Adjust the patient's blood pressure medication. Of note, the patient was on Bystolic, but she could not afford because of 80-dollar co-pay. Therefore, she received samples from Dr. Mcgill and questioned whether she has off and on taken the medication, which contributed to the patient's fluctuating blood pressure. She is also on clonidine as well and that is discontinued due to the labile blood pressure. The patient is otherwise stable at this time. No chest pain or shortness of breath. We will place the patient on nifedipine XL 90 mg daily, metoprolol 50 mg twice a day, Diovan 360 mg once a day. We will continue to maximize the patient's blood pressure medication first before adding on another blood pressure medication. Discussed with the patient at length. MD BIJU Briseno/MOHSEN /[id number]
[2019-01-20] VITALS: BP 189/79
--- NOTE | 2019-01-20 00:11 | Consultation ---
DATE OF CONSULTATION: 01/19/2019 Consultation HISTORY OF PRESENT ILLNESS: The patient is resting comfortable, in no apparent distress. Denies any shortness of breath, nausea, or vomiting. This is a 68-year-old female, well known to our Nephrology Service, has an underlying history of chronic kidney disease. She has been admitted by Dr. Schmitz. Renal has been consulted for management of underlying kidney failure. She also is significantly hypertensive. Her home medications were not resumed. Initial blood pressure was in the 220s. She is otherwise comfortable, lying supine, in no apparent distress. Denies any headache, fever, chills, chest pain, or shortness of breath. ALLERGIES: SHE IS ALLERGIC TO TYLENOL NO. 3 AND TRAMADOL. PAST MEDICAL HISTORY: History of cervical cancer at the age of 19, had hysterectomy and appendectomy, history of cholecystectomy, history of hypertension, type 2 diabetes, history of hypothyroidism, history of diabetic neuropathy, nephropathy, history of coronary artery disease, status post angioplasty and she has several stents, on Plavix. CURRENT MEDICATIONS: The patient is on aspirin 325 once a day, Plavix 75 mg daily, furosemide 40 mg daily, Neurontin 900 mg p.o. q.12, glipizide 10 mg at bedtime, levothyroxine 112 mcg daily, metoprolol 50 mg p.o. b.i.d. She is on nifedipine 90 mg once a day. She is on simvastatin 40 mg at bedtime and valsartan 320 mg once a day. SOCIAL HISTORY: She does not smoke or drink. FAMILY HISTORY: Significant for hypertension. LABORATORY DATA: White count 3.76 and hemoglobin 9.3. Sodium 140 and potassium 3.8. Glucose is 130. PHYSICAL EXAMINATION: GENERAL: On exam, awake, alert, lying supine, in no apparent distress. VITAL SIGNS: Blood pressure 211/91, pulse rate 80, afebrile, and respiratory rate 17. HEAD AND NECK: Cornea clear. Oral mucosa moist. Neck veins flat. LUNGS: Relatively clear. HEART: S1 and S2 audible. ABDOMEN: Otherwise, soft and nontender. No abdominal bruits. LOWER EXTREMITIES: No edema. IMPRESSION AND PLAN: Accelerated hypertension with underlying diabetes, multiple comorbidities discussed with the patient in detail. Plan on titrating Procardia to 90 mg q.12. We will continue with valsartan, continue with metoprolol, and agree with stopping Bystolic. We will obtain kidney ultrasound and spot urine protein-creatinine ratio. May have to start minoxidil. Discussed with the patient in detail. Please see orders. MD VIRGEN Lane/MOHSEN /[id number]
[2019-01-20 00:30] VITALS: BP 189/79
--- NOTE | 2019-01-20 02:00 | NUR ---
Patient back in bed after shower and feeling better. No complains or concerns. Call light within reach. Will continue to monitor.
[2019-01-20 03:56] LABS: CREATININE,URINE RANDOM 71.35 mg/dL (47-110)
[2019-01-20 04:00] VITALS: BP 167/74
[2019-01-20 05:46] LABS: ALBUMIN 3.6 g/dL (3.5-5.0); ALBUMIN/GLOBULIN RATIO 1.2 (0.8-2.0); ANION GAP 12.8 mmol/L (8-16); CREATININE, SERUM 1.11 mg/dL (0.57-1.11); POTASSIUM 3.8 mmol/L (3.5-5.1)
[2019-01-20] MEDS ORDERED: NIFEDIPINE CR 30 MG TAB PO SCH (06:00)
[2019-01-20] MEDS ORDERED: LEVOTHYROXINE SODIUM 112 MCG TAB PO SCH (06:00)
[2019-01-20] MEDS ORDERED: LEVOTHYROXINE SODIUM 25 MCG TABLET PO SCH (06:00)
[2019-01-20] MEDS ORDERED: VALSARTAN 160 MG TAB PO SCH (06:00)
--- NOTE | 2019-01-20 06:12 | NUR ---
Resting, eyes closed, resp even and unlabored. Meds given per MD orders, tolerated well and going back to sleep. Call light within reach. Will continue to monitor.
[2019-01-20 07:36] VITALS: BP 188/77
--- NOTE | 2019-01-20 07:36 | Diagnostic Imaging Report ---
EXAMINATION: Renal Doppler ultrasound. CLINICAL HISTORY :Uncontrolled hypertension, acute kidney injury COMPARISON: <None available.> TECHNIQUE: Grayscale and color Doppler evaluation of the kidneys and bladder was performed in transverse and longitudinal planes. Doppler interrogation of the main, hilar, segmental and arcuate renal arteries bilaterally as well as evaluation of the aorta were performed. DISCUSSION: RIGHT KIDNEY: The right kidney measures 11.6 cm in length and shows normal echogenicity. The right renal cortex measures 1.6 cm. No hydronephrosis, shadowing calculi or solid mass lesions. . Right main renal artery PSV is 155 cm/sec. Highest right segmental artery PSV is 91.7 cm/s. Arterial waveforms are normal. The right renal artery PSV/aortic PSV ratio is 1.7. LEFT KIDNEY: The left kidney measures 11.6 cm in length and shows normal echogenicity. The left renal cortex measures 1.2 cm. No hydronephrosis, shadowing calculi or solid mass lesions. Left main renal artery PSV is 95.6 cm/sec. Highest left segmental artery PSV is 85.9cm/sec. Arterial waveforms are normal. The left renal artery PSV/aortic PSV ratio is 0.8. Abdominal aortic PSV is 118 cm/sec. BLADDER: Collapsed. Impression: No renal Doppler findings of hemodynamically significant renal artery stenosis. Signed by: Dr. Angelo Mathias M.D. on 01/20/2019 7:33 AM
[2019-01-20] MEDS: INSULIN LISPRO 100 UNIT/1 ML 3ML VIAL SQ SCH (08:54)
[2019-01-20] MEDS ORDERED: FUROSEMIDE 40 MG TAB PO SCH (09:00)
[2019-01-20] MEDS ORDERED: CLOPIDOGREL BISULFATE 75 MG TAB PO SCH (09:00)
[2019-01-20] MEDS ORDERED: ASPIRIN 325 MG TAB PO SCH (09:00)
[2019-01-20] MEDS ORDERED: INSULIN GLARGINE 100 UNITS/ML VIAL SC SCH (09:00)
[2019-01-20] MEDS: NIFEDIPINE CR 30 MG TAB PO SCH (09:01)
[2019-01-20] MEDS: METOPROLOL TARTRATE 50 MG TAB PO SCH (09:01)
[2019-01-20 09:18] VITALS: BP 188/77
[2019-01-20 10:42] LABS: TOTAL PROTEIN, URINE 493.9 mg/dL (1-14)
== END 2019-01-20 11:16 | disposition home or self-care (01) ==
LOC: ER 12:13 → ERHOLD 16:00 → IMCU 17:52
PROVIDERS: ADMIT Internal Medicine; ATTEND Internal Medicine
DX: I16.0 Hypertensive urgency (principal); R55 Syncope and collapse; I10 Essential (primary) hypertension; I25.10 Atherosclerotic heart disease of native coronary artery without angina pectoris; E03.9 Hypothyroidism, unspecified; E78.5 Hyperlipidemia, unspecified; N17.9 Acute kidney failure, unspecified; Z88.6 Allergy status to analgesic agent; Z88.5 Allergy status to narcotic agent; I95.2 Hypotension due to drugs; T46.5X5A Adverse effect of other antihypertensive drugs, initial encounter; E11.42 Type 2 diabetes mellitus with diabetic polyneuropathy; Z79.82 Long term (current) use of aspirin; Z79.84 Long term (current) use of oral hypoglycemic drugs
CPT/HCPCS: 36415 ×3; 71045; 80048 ×2; 80053 ×2; 81001; 82550 ×2; 82553 ×2; 82570; 82948 ×3; 83735; 83880; 84156; 84443; 84484 ×2; 85025 ×2; 85610; 85730; 87086; 93005; 93976; 96361; 96372; 96376; 99284; G0378 ×3; J0360; J1815; J7030

== ENCOUNTER 2019-06-10 15:17 | Inpatient (IN) | payer MEDICARE ==
[~2019-06-10] VITALS: Ht 154.9 cm; Wt 74.1 kg
[~2019-06-10 15:17] MED LIST changes: +NIFEDIPINE ER30 M1 PO
--- OUTSIDE RECORDS SUMMARY | 2019-06-10 15:20 | XMS REPORT | Continuity of Care Document ---
Author Author [employer] Organization [employer] Address Unknown Phone Unavailable Care Team Providers Care Media Monitor Name Role Phone [facility] [employer] Unavailable Unavailable Problems Problem Status Onset Date Classification Date Reported Comments Source Precordial pain 07/31/2018 02/10/2019 [facility] Active 07/16/2018 [facility] Dyspnea, unspecified 02/10/2019 [facility] Essential hypertension 02/10/2019 [facility] Presence of coronary angioplasty implant and graft 02/10/2019 [facility] Medications Medication Details Route Status Patient Instructions Ordering Provider Order Date Source Clonidine Hcl 0.1 Mg Tablet, 1 Tab Oral Three Times A Day Active 01/20/2019 [facility] Hydralazine Hcl 25 Mg Tab, 100 Mg Oral Three Times A Day Active 01/20/2019 [facility] Losartan Potassium 100 Mg Tablet, 100 Mg Oral Daily Active 01/20/2019 [facility] Nebivolol Hcl (Bystolic) 10 Mg Tablet, 5 Mg Oral Daily Active 01/20/2019 [facility] Nifedipine (Nifedipine Er) 30 Mg Tab.er.24, 60 Mg Oral Daily Active 01/20/2019 [facility] Spironolactone 25 Mg Tablet, 50 Mg Oral Daily Active 01/20/2019 [facility] Amlodipine Besylate 5 Mg Tablet, 5 Mg Oral Daily Active 01/18/2019 [facility] Terazosin Hcl 2 Mg Capsule, 2 Mg Oral Every 12 Hours Active 01/18/2019 [facility] Hydrocodone Bit/Acetaminophen ([place] 5-325 Tablet) 1 Each Tablet, 1 Each Oral Every 4 Hours for Pain Active 08/12/2018 [facility] Insulin Glargine (Lantus 3ML Pen) 100 Units/1 Ml Inj, 15 Units Subcutaneously Daily Active 08/12/2018 [facility] Levothyroxine Sodium 50 Mcg Tablet, 150 Mcg Oral Daily Active 08/12/2018 [facility] Ondansetron (Zofran Odt) 4 Mg Tab.rapdis, 4 Mg Every 4 Hours for Nausea Active 08/12/2018 [facility] Zolpidem Tartrate (Ambien) 10 Mg Tablet, 10 Mg Oral Bedtime as needed for Insomnia Active 08/12/2018 [facility] Aspirin 325 Mg Tablet Daily Active [facility] Clopidogrel Bisulfate (Plavix) 75 Mg Tablet Daily Active [facility] Furosemide (Lasix) 20 Mg Tablet Daily Active [facility] Gabapentin 300 Mg Capsule Every 12 Hours Active [facility] Glipizide 5 Mg Tablet Bedtime Active [facility] Insulin Detemir (Levemir) 100 Unit/1 Ml Vial Daily Active [facility] Iron Daily Active [facility] Levothyroxine Sodium (Levoxyl) 137 Mcg Tablet Daily Active [facility] Metformin Hcl (Metformin Hcl Er) 500 Mg Tab.er.24 Every 12 Hours Active [facility] Simvastatin 40 Mg Tablet Today At 9:00PM Active [facility] Allergies, Adverse Reactions, Alerts Substance Category Reaction Severity Reaction type Status Date Reported Comments Source Tramadol DIZZINESS Unknown Allergy to Substance Active 07/18/2018 [facility] Codeine DIZZINESS, VOMITING Unknown Propensity to adverse reactions Active 01/19/2019 [facility] Acetaminophen DIZZINESS, VOMITING Unknown Propensity to adverse reactions Active 01/19/2019 [facility] Immunizations No Data Provided for This Section Results Order Name Results Value Reference Range Date Interpretation Comments Source Serum or plasma sodium measurement (moles/volume) 141 136 - 145 01/20/2019 [facility] Serum or plasma potassium measurement (moles/volume) 3.8 3.5 - 5.1 01/20/2019 [facility] Serum or plasma chloride measurement (moles/volume) 106 98 - 107 01/20/2019 [facility] Serum or plasma carbon dioxide, total measurement (moles/volume) 26 22 - 29 01/20/2019 [facility] Serum or plasma anion gap 12.8 8 - 16 01/20/2019 [facility] Serum or plasma urea nitrogen measurement (mass/volume) 17 7 - 26 01/20/2019 [facility] Serum or plasma creatinine measurement (mass/volume) 1.11 0.57 - 1.11 01/20/2019 [facility] Serum or plasma urea nitrogen/creatinine mass ratio 15 6 - 25 01/20/2019 [facility] Estimated glomerular filtration rate (GFR) determination 49 60 01/20/2019 [facility] Glucose measurement 208 74 - 118 01/20/2019 [facility] Serum or plasma calcium measurement (mass/volume) 9.0 8.4 - 10.2 01/20/2019 [facility] Serum or plasma total bilirubin measurement (mass/volume) 0.4 0.2 - 1.2 01/20/2019 [facility] Aspartate Amino Transf (AST/SGOT) 13 5 - 34 01/20/2019 [facility] Serum or plasma alanine aminotransferase measurement (enzymatic activity/volume) 14 0 - 55 01/20/2019 [facility] Serum or plasma protein measurement (mass/volume) 6.6 6.5 - 8.1 01/20/2019 [facility] Serum or plasma albumin measurement (mass/volume) 3.6 3.5 - 5.0 01/20/2019 [facility] Plasma globulin measurement (mass/volume) 3.0 2.3 - 3.5 01/20/2019 [facility] Serum or plasma albumin/globulin mass ratio 1.2 0.8 - 2.0 01/20/2019 [facility] Serum or plasma alkaline phosphatase measurement (enzymatic activity/volume) 62 40 - 150 01/20/2019 [facility] Urine protein measurement (mass/volume) 493.9 1 - 14 01/20/2019 [facility] Urine creatinine measurement (mass/volume) 71.35 47 - 110 01/20/2019 [facility] Random urine protein/creatinine ratio 6.00 01/20/2019 [facility] Capillary blood glucose measurement by glucometer (mass/volume) 214 70 - 120 01/19/2019 [facility] Serum or plasma creatine kinase measurement (enzymatic activity/volume) 93 29 - 168 01/19/2019 [facility] Serum or plasma creatine kinase MB measurement (mass/volume) 0.80 0 - 5.0 01/19/2019 [facility] Troponin I measurement by highly sensitive enzyme immunoassay 0.004 0 - 0.300 01/19/2019 [facility] Blood leukocytes automated count (number/volume) 3.76 4.8 - 10.8 01/19/2019 [facility] Blood erythrocytes automated count (number/volume) 3.30 3.6 - 5.1 01/19/2019 [facility] Blood hemoglobin measurement (moles/volume) 9.3 12.0 - 16.0 01/19/2019 [facility] Automated blood hematocrit (volume fraction) 29.3 34.2 - 44.1 01/19/2019 [facility] Automated erythrocyte mean corpuscular volume 88.8 81 - 99 01/19/2019 [facility] Automated erythrocyte mean corpuscular hemoglobin (mass per erythrocyte) 28.2 28 - 32 01/19/2019 [facility] Automated erythrocyte mean corpuscular hemoglobin concentration measurement (mass/volume) 31.7 31 - 35 01/19/2019 [facility] RDW BldCo-Rto 15.4 11.7 - 14.4 01/19/2019 [facility] Automated blood platelet count (count/volume) 171 140 - 360 01/19/2019 [facility] Automated blood segmented neutrophil count as percentage of total leukocytes 64.1 38.7 - 80.0 01/19/2019 [facility] Automated blood lymphocyte count as percentage ot total leukocytes 24.5 18.0 - 39.1 01/19/2019 [facility] Automated blood monocyte count as percentage of total leukocytes 8.5 4.4 - 11.3 01/19/2019 [facility] Automated blood eosinophil count as percentage of total leukocytes 2.1 0.0 - 6.0 01/19/2019 [facility] Automated blood basophil count as percentage of total leukocytes 0.5 0.0 - 1.0 01/19/2019 [facility] IM GRANULOCYTES % 0.3 0.0 - 1.0 01/19/2019 [facility] Automated blood neutrophil count 2.4 2.1 - 6.9 01/19/2019 [facility] Blood lymphocytes count (number/volume) 0.9 1.0 - 3.2 01/19/2019 [facility] Blood monocytes automated count (number/volume) 0.3 0.2 - 0.8 01/19/2019 [facility] Automated blood eosinophil count 0.1 0.0 - 0.4 01/19/2019 [facility] Automated blood basophil count (count/volume) 0.0 0.0 - 0.1 01/19/2019 [facility] Absolute Immature Granulocyte (auto 0.01 0 - 0.1 01/19/2019 [facility] Urine color determination YELLOW YELLOW 01/18/2019 [facility] Urine clarity HAZY CLEAR 01/18/2019 [facility] Specific gravity of Urine by Test strip 1.025 1.010 - 1.025 01/18/2019 [facility] Urine pH measurement by automated test strip 5 5 - 7 01/18/2019 [facility] Urine leukocyte esterase detection by dipstick TRACE NEGATIVE 01/18/2019 [facility] Urine nitrite detection NEGATIVE NEGATIVE 01/18/2019 [facility] Urine protein measurement by test strip (mass/volume) 3+ NEGATIVE 01/18/2019 [facility] Urine glucose detection 1+ NEGATIVE 01/18/2019 [facility] Urine ketones detection by automated test strip NEGATIVE NEGATIVE 01/18/2019 [facility] Urine urobilinogen measurement by test strip (mass/volume) 0.2 0.2 - 1 01/18/2019 [facility] Urine total bilirubin measurement (mass/volume) NEGATIVE NEGATIVE 01/18/2019 [facility] Urine erythrocytes detection NEGATIVE NEGATIVE 01/18/2019 [facility] Automated urine sediment leukocyte count by microscopy (number/high power field) 0-5 0 - 5 01/18/2019 [facility] Erythrocytes detection in urine sediment by light microscopy NONE 0 - 5 01/18/2019 [facility] Bacteria detection in urine sediment by light microscopy FEW NONE 01/18/2019 [facility] Epithelial cells detection in urine sediment by light microscopy MODERATE NONE 01/18/2019 [facility] Prothrombin time (PT) in platelet poor plasma by coagulation assay 12.7 11.9 - 14.5 01/18/2019 [facility] INR in Platelet poor plasma by Coagulation assay 0.87 01/18/2019 [facility] Activated partial thromboplastin time (aPTT) in platelet poor plasma bycoagulation assay 30.8 23.8 - 35.5 01/18/2019 [facility] Serum or plasma magnesium measurement (mass/volume) 1.4 1.3 - 2.1 01/18/2019 [facility] BNP Bld-mCnc 141.6 0 - 100 01/18/2019 [facility] Serum or plasma thyrotropin measurement by detection limit <=0.005 miu/l (units/volume) 2.692 0.350 - 4.940 01/18/2019 [facility] Serum or plasma triglyceride measurement (mass/volume) 257 0 - 149 08/14/2018 [facility] Serum or plasma cholesterol measurement (mass/volume) 118 0 - 199 08/14/2018 [facility] Serum or plasma cholesterol in LDL measurement (mass/volume) 32 60 - 130 08/14/2018 [facility] Serum or plasma cholesterol in HDL measurement (mass/volume) 35 40 - 60 08/14/2018 [facility] Serum or plasma total cholesterol/cholesterol in HDL mass ratio 3.4 3.0 - 3.6 08/14/2018 [facility] Transitional cells detection in urine sediment by light microscopy FEW NONE 07/18/2018 [facility] Bacterial urine culture Urine Culture [facility] Pathology Reports No Data Provided for This Section Diagnostic Reports Report Value Date Source Cardiac SPECT multi studies NM Cardiac SPECT multi studies NM CLINICAL HISTORY: - chest pain; TECHNIQUE: 10 mCis of Technetium 99m Cardiolite were administered for the stress portion of the examination and 30 mCis for the resting study. The patient was given 0.4 mg of IV Lexiscan for the stress portion of the study FINDINGS: The SPECT images are limited especially in the inferior wall due to bowel artifact. There is suggestion of mild reversibility in the inferior and lateral wall of left ventricle. The left ventricle cavity is of normal size. CARDIAC PERFUSION STUDY: FINDINGS: The gated examination demonstrates no significant focal wall motion abnormality. The end-diastolic volume is estimated at 80 ml with end-systolic volume at 27 ml. The ejection fraction is calculated at 67 % . IMPRESSION: Findings suggestive of mild ischemia in the inferior and lateral wall of left ventricle. Evaluation especially of the inferior wall is compromised due to bowel artifact. SL: [id number] 07/24/2018 [facility] Consultation Notes No Data Provided for This Section Discharge Summaries No Data Provided for This Section History and Physicals No Data Provided for This Section Vital Signs Vital Sign Value Date Comments Source BMI Calculated 20.62 07/24/2018 [facility] Height 185.42 cm 07/24/2018 [facility] Weight 70.909 07/24/2018 [facility] Encounters Location Location Details Encounter Type Encounter Number Reason For Visit Attending Provider ADM Date DC Date Status Source Departed Emergency Room [id number] SUKHI UP MD 07/18/2018 07/18/2018 [facility] Outpatient [id number] Arleen Brunner Jr 07/24/2018 07/25/2018 [facility] Discharged Inpatient [id number] VELMA MOONEY MD 08/13/2018 08/14/2018 [facility] Discharged Inpatient [id number] VELMA MOONEY MD 09/10/2018 09/11/2018 [facility] Discharged Inpatient (obs) [id number] YARED SHERIFF MD 01/18/2019 01/20/2019 [facility] Procedures Procedure Code Date Perfomer Comments Source US Doppler renal vessels limited [id number] 01/19/2019 [facility] MEASURE OF CARDIAC SAMPL & PRESSURE, L HEART, PERC APPROACH [id number] 09/10/2018 [facility] DILATION OF 1 COR ART WITH DRUG-ELUT INTRA, PERC APPROACH [id number] 09/10/2018 [facility] FLUOROSCOPY OF MULT COR ART USING L OSM CONTRAST [id number] 09/10/2018 [facility] DILATION OF 1 COR ART WITH DRUG-ELUT INTRA, PERC APPROACH [id number] 08/13/2018 [facility] MEASURE OF CARDIAC SAMPL & PRESSURE, L HEART, PERC APPROACH [id number] 08/13/2018 [facility] FLUOROSCOPY OF MULT COR ART USING L OSM CONTRAST [id number] 08/13/2018 [facility] FLUOROSCOPY OF LEFT HEART USING LOW OSMOLAR CONTRAST [id number] 08/13/2018 [facility] X-ray of chest, two views [id number] 08/12/2018 [facility] Assessment and Plan No Data Provided for This Section Plan of Care Plan of Care Date Source Discharge Date 01/20/19 11:16am Disposition HOME, SELF-CARE Instructions/Education Provided Syncope Prescriptions See Medication Section Referrals KERRY SCHROEDER MD (Nephrology) Order Date: 1 Week Entered Date: 01/20/2019 10:34am Address: [address] [place] [id number] Additional Instructions/Education FOLLOW UP [facility] DR. SCHROEDER T:[phone], WITHIN A WEEK, CALL OFFICE FOR APPT. LOW SODIUM, NO SUGAR DIET, FOLLOW UP WITH PCP IN 1-2 WEEKS. 01/20/2019 [facility] Social History Social History Date Source Social History Problem Response Recorded Date/Time Onset Date Status Hx Psychiatric Problems No 07/28/2017 3:48pm Not Applicable Not Applicable Hx Eating Disorder No 07/28/2017 3:48pm Not Applicable Not Applicable Hx Substance Use Disorder No 09/08/2018 2:29pm Not Applicable Not Applicable Hx Depression No 07/28/2017 3:48pm Not Applicable Not Applicable Hx Alcohol Use Y - "OCCASSIONALLY I DRINK WINE" 09/08/2018 2:29pm Not Applicable Not Applicable Hx Substance Use Treatment No 07/28/2017 3:48pm Not Applicable Not Applicable Hx Physical Abuse No 07/28/2017 3:48pm Not Applicable Not Applicable Smoking Status Start Date Stop Date Never Smoker 01/20/2019 [facility] No data available for this section 07/25/2018 [facility] Family History No Data Provided for This Section Advance Directives Order Name Results Value Date Source Advance Directives Advance Directives Directive Response Recorded Date/Time Does the patient have an advance directive? No 01/18/19 5:57pm If yes, is advance directive on file with [facility]? No 01/18/19 5:57pm If not on file with [facility] will patient provide a copy? No 01/18/19 5:57pm Do you have a Directive to Physician? No 01/18/19 2:08pm Do you have a Medical Power of Ux Designer? No 01/18/19 2:08pm Do you have an out of hospital Do Not Resuscitate Order? No 01/18/19 2:08pm Do you have any special needs we should be aware of? No 01/18/19 2:08pm Do you have a support person here with you today? Yes 01/18/19 2:08pm Did patient receive Notice of Privacy Practices? Yes 01/18/19 2:08pm Did patient receive patient rights and responsibilities? Yes 01/18/19 2:08pm 01/20/2019 [facility] Functional Status No Data Provided for This Section
--- OUTSIDE RECORDS SUMMARY | 2019-06-10 15:21 | XMS REPORT | Summary of Care ---
Author Author [facility] Organization [facility] Address Unknown Phone Unavailable Encounter HQ Karen(FIN) [id number] Date(s): 07/24/18 - 07/24/18 [facility] [address] [place] [address]- [phone] Encounter Diagnosis Precordial pain (Final) - 07/30/18 Dyspnea, unspecified (Final) - Essential (primary) hypertension (Final) - Presence of coronary angioplasty implant and graft (Final) - Discharge Disposition: Home or Self Care Attending Physician: Arleen Pineda DO Referring Physician: Arleen Pineda DO Vital Signs Most recent to 1 oldest [Reference Range]: Height 185.42 cm (07/24/18 9:53 AM) Weight 70.909 kg (07/24/18 9:53 AM) Body Mass Index 20.62 m2 (07/24/18 9:53 AM) Problem List No data available for this section Allergies, Adverse Reactions, Alerts Substance Reaction Severity Status NKDA Active Medications No data available for this section Results No data available for this section Immunizations No data available for this section Procedures No data available for this section Social History No data available for this section Assessment and Plan No data available for this section
--- NOTE | 2019-06-10 15:47 | NUR ---
Patient was a direct admission from PCP's office with a diagnosis of Iron Deficiency Anemia. Patient is awake and alertx4 and able to make needs known. Dr. Schmitz called on cellphone to notify of admission, obtain orders, review labs and restart home medications. Received orders for CBC, CMP and per Dr. Schmitz he will review home meds and restart if appropriate. Bed in lowest position, locked and call enriquez within reach. Patient instructed to call for assistance and verbalized understanding.
[2019-06-10] MEDS ORDERED: NIFEDIPINE ER30 M1 PO (16:03)
[2019-06-10] MEDS ORDERED: TERAZOSIN HCL5 MG PO (16:03)
[2019-06-10] MEDS ORDERED: DIOVAN320 MG PO (16:03)
[2019-06-10] MEDS ORDERED: HYDRALAZINE HCL25 MG PO (16:03)
[2019-06-10] MEDS ORDERED: MECLIZINE HCL12.5 MG PO (16:03)
[2019-06-10] MEDS ORDERED: BYSTOLIC10 MG PO (16:03)
[2019-06-10 16:07] VITALS: BP 173/72
[2019-06-10 16:16] VITALS: BP 173/72
[2019-06-10 16:17] VITALS: BP 173/72
[2019-06-10 18:30] LABS: BASOPHILS % 0.4 % (0.0-1.0); EOSINOPHILS # (AUTO) 0.1 (0.0-0.4); EOSINOPHILS % 2.1 % (0.0-6.0); LYMPHOCYTES # (AUTO) 0.7 (1.0-3.2); LYMPHOCYTES % 23.8 % (18.0-39.1); MEAN CORPUSCULAR HEMOGLOBIN 29.8 pg (28-32); MEAN CORPUSCULAR HGB CONC 30.7 g/dL (31-35); MEAN CORPUSCULAR VOLUME 97.2 fL (81-99); MONOCYTES # (AUTO) 0.4 (0.2-0.8); MONOCYTES % 12.4 % (4.4-11.3); NEUTROPHILS # (AUTO) 1.7 (2.1-6.9); NEUTROPHILS % 60.6 % (38.7-80.0); PLATELET COUNT 141 x10e3/uL (140-360); RED BLOOD COUNT 2.18 x10e6/uL (3.6-5.1); RED CELL DISTRIBUTION WIDTH 16.9 % (11.7-14.4)
[2019-06-10 18:32] LABS: HEMATOCRIT 21.2 % (34.2-44.1)
[2019-06-10 18:33] LABS: HEMOGLOBIN 6.5 g/dL (12.0-16.0)
[2019-06-10 18:47] LABS: ALBUMIN 3.4 g/dL (3.5-5.0); ANION GAP 13.1 mmol/L (8-16); CALCIUM 8.6 mg/dL (8.4-10.2); CREATININE, SERUM 1.38 mg/dL (0.57-1.11); POTASSIUM 4.1 mmol/L (3.5-5.1)
[2019-06-10] MEDS ORDERED: SODIUM CHLORIDE 0.9% 250ML 250 ML IV ONE (19:00)
--- NOTE | 2019-06-10 19:00 | NUR ---
Report received from [place] RN. Pt is resting in bed comfortably. Call light is in reach.
--- NOTE | 2019-06-10 19:01 | NUR ---
Critical Hgb 6.[address] Schmitz. Report given and rounds done.
[2019-06-10 19:48] LABS: THYROID STIMULATING HORMONE 2.15 uIU/mL (0.350-4.940)
[2019-06-10] MEDS: NIFEDIPINE CR 30 MG TAB PO SCH (19:49)
[2019-06-10 20:31] VITALS: BP 163/69
[2019-06-10] MEDS: HYDRALAZINE HCL 25 MG TAB PO SCH (21:06)
[2019-06-10 21:10] VITALS: BP 181/75
--- NOTE | 2019-06-10 22:20 | NUR ---
First unit PRBC started at this time. Pt VS T98.6 HR 72 RR 18 BP 159/85 O2 91% on RA. Pt in no apparent distress. Will continue to monitor patient closely.
[2019-06-10 23:40] VITALS: BP 181/75
[2019-06-11] VITALS (7 sets, daily range): BP systolic 146–196; BP diastolic 62–85
--- NOTE | 2019-06-11 00:28 | Consultation ---
DATE OF CONSULTATION: 06/10/2019 GI Consult Note REASON FOR CONSULT: Profound symptomatic anemia. HISTORY OF PRESENTING ILLNESS: A 68-year-old very pleasant white female with a past medical history of hypertension, type 2 diabetes, dyslipidemia, hypothyroidism, who was admitted through Dr. Bates' office due to symptomatic anemia. Routine blood work revealed hemoglobin of 6.5, MCV 97.2. Baseline hemoglobin was 9.9 in December this year. The patient has never had any upper endoscopy or colonoscopy. No chronic use of any NSAIDs. Denies any epistaxis, hemoptysis, hematuria, hematemesis, melena, hematochezia. No abdominal pain. She feels weak and easily get winded with minimal exertion. She also herself noticed that she is quite pale. REVIEW OF SYSTEMS: Twelve-point system reviewed, symptomatology is limited as per HPI. PAST MEDICAL HISTORY: Type 2 diabetes, refractory hypertension, hypothyroidism, dyslipidemia, diabetic neuropathy, coronary artery disease, status post PCI with stents, history of insomnia. PAST SURGICAL HISTORY: Cholecystectomy, appendectomy, hysterectomy, PCI with coronary stents. FAMILY HISTORY: Negative for any GI or DEMOLITION ENGINEER malignancies. SOCIAL HISTORY: No smoking, alcohol, or any illicit drug use. ALLERGIES: ACETAMINOPHEN, CODEINE, TRAMADOL. HOME MEDICATIONS: Aspirin, clopidogrel, furosemide, gabapentin, glipizide, hydralazine, insulin detemir, levothyroxine, meclizine, metformin, nebivolol, nifedipine, simvastatin, terazosin, valsartan, iron pills. INPATIENT MEDICATIONS: Reviewed as per MAR. PHYSICAL EXAMINATION: VITAL SIGNS: Temperature 98, pulse 71, respirations 20, blood pressure 173/72 to 163/69, oxygen saturation 93% on room air. GENERAL: Gross pallor, appears to be lethargic and drowsy. HEENT: Oral mucosa is moist. Anicteric sclerae. CVS: S1 and S2 regular. LUNGS: Bilaterally grossly clear. ABDOMEN: Soft, nondistended, nontender. No palpable mass or hernia. Positive bowel sounds. EXTREMITIES: Warm. Bilateral 1+ pitting pedal edema. LABORATORY DATA: WBC 2.82, hemoglobin 6.5, hematocrit 21.2, platelet count 141, MCV 97.2, (hemoglobin was 9.3 and hematocrit 29.3 on 01/19/2019). Sodium 143, potassium 4.1, chloride 109, bicarb 25, BUN 36, creatinine 1.38, glucose 123. Liver enzymes normal. PT 12.7, INR 0.87, and PTT 30.8. Urinalysis negative. IMPRESSION: Profound symptomatic anemia with microcytic indices. The patient has never had any upper endoscopy or colonoscopy. Iron profile is showing TIBC elevated to 405, iron saturation is low to 37. PLAN: Clear liquid diet, bowel prep tomorrow. Upper endoscopy and colonoscopy on Saturday. Further recommendation based upon endoscopy finding. In the meantime, stool for occult blood is pending. I thank, Dr. Schmitz, for allowing me to participate in the care of this patient. Ryne Weinberg MD SA/MOHSEN /[id number]
[2019-06-11] MEDS: GABAPENTIN 300 MG CAP PO SCH ×3 (00:54→20:56)
--- NOTE | 2019-06-11 02:10 | NUR ---
First unit PRBC complete at this time.
[2019-06-11] MEDS: FUROSEMIDE INJ 10 MG/ML 2 ML VIAL IV PRN ×2 (02:15→06:14)
[2019-06-11] MEDS ORDERED: SODIUM CHLORIDE 0.9% 250ML 250 ML ONE (02:26)
--- NOTE | 2019-06-11 02:40 | NUR ---
2nd PRBC started at this time.
--- NOTE | 2019-06-11 06:05 | NUR ---
Second unit of PRBC completed.
--- NOTE | 2019-06-11 07:30 | NUR ---
Received patient this morning, a/ox3, in bed, call light within reach, no resp distress, no c/o pains, rounds completed and will monitor, on clear liquid diet
[2019-06-11 08:21] LABS: BASOPHILS % 0.2 % (0.0-1.0); EOSINOPHILS # (AUTO) 0.1 (0.0-0.4); EOSINOPHILS % 2.7 % (0.0-6.0); HEMATOCRIT 30.8 % (34.2-44.1); HEMOGLOBIN 9.8 g/dL (12.0-16.0); LYMPHOCYTES # (AUTO) 0.6 (1.0-3.2); LYMPHOCYTES % 15.6 % (18.0-39.1); MEAN CORPUSCULAR HEMOGLOBIN 29.8 pg (28-32); MEAN CORPUSCULAR HGB CONC 31.8 g/dL (31-35); MEAN CORPUSCULAR VOLUME 93.6 fL (81-99); MONOCYTES # (AUTO) 0.4 (0.2-0.8); MONOCYTES % 9.5 % (4.4-11.3); NEUTROPHILS # (AUTO) 2.9 (2.1-6.9); NEUTROPHILS % 71.3 % (38.7-80.0); PLATELET COUNT 155 x10e3/uL (140-360); RED BLOOD COUNT 3.29 x10e6/uL (3.6-5.1)
[2019-06-11 08:36] LABS: ANION GAP 15.3 mmol/L (8-16); CREATININE, SERUM 1.24 mg/dL (0.57-1.11); POTASSIUM 4.3 mmol/L (3.5-5.1)
[2019-06-11] MEDS: HYDRALAZINE HCL 25 MG TAB PO SCH ×3 (09:00→20:56)
[2019-06-11] MEDS: NIFEDIPINE CR 30 MG TAB PO SCH (09:24)
--- NOTE | 2019-06-11 10:01 | NUR ---
Call from Dr. Weinberg, EGD and colonoscopy planned for 13:30 tomorrow and patient signed consent for procedure and orders in place for bowel prep starting tonight.
[2019-06-11] MEDS ORDERED: DEXTROSE 50% SYRINGE 50 ML IV PRN (10:15)
[2019-06-11] MEDS ORDERED: PEG (High)/E-LYTE SOLN 4,000 ML BTL PO ONE (10:30)
[2019-06-11] MEDS: PANTOPRAZOLE 40 MG 10ML VIAL IV SCH ×2 (10:41→17:02)
[2019-06-11] MEDS: NEBIVOLOL 10 MG TAB PO SCH (10:41)
[2019-06-11] MEDS: INSULIN LISPRO 100 UNIT/1 ML 3ML VIAL SQ SCH ×3 (11:30→21:00)
[2019-06-11] MEDS ORDERED: BISACODYL 5 MG TAB EC PO ONE (16:00)
[2019-06-11] MEDS ORDERED: NEBIVOLOL 10 MG TAB PO SCH (17:00)
--- NOTE | 2019-06-11 20:42 | NUR ---
Report given to CAM Rosales at this time.
--- NOTE | 2019-06-11 22:58 | Progress Note ---
DATE: 06/11/2019 GI Progress Report SUBJECTIVE: The patient reports no abdominal pain. Tolerating clear liquid diet. She is overall feeling better after receiving blood transfusion. REVIEW OF SYSTEMS: GENERAL: Weakness and lethargy have improved. CVS: No chest pain or palpitation. RESPIRATORY: No cough or expectoration. MEDICATIONS: Reviewed as per JAN. PHYSICAL EXAMINATION: VITAL SIGNS: Temperature 96.7, pulse 67, respirations 18, blood pressure 196/85, and oxygen saturation 92% on room air. GENERAL: Not in any acute distress. HEENT: Oral mucosa is moist. Anicteric sclerae. Gross pallor. ABDOMEN: Soft, nondistended, nontender. No mass or hernia. Positive bowel sounds. LABORATORY DATA: WBC 4.11, hemoglobin has come up to 9.8 from 6.5, platelet count 155. Sodium 140, potassium 4.3, chloride 104, bicarb 25, BUN 28, creatinine 1.24, glucose 166. Stool occult blood heme-positive. ASSESSMENT: Iron deficiency anemia from chronic blood loss, stool occult blood is heme-positive. PLAN: Continue clear liquid diet, bowel prep tonight. EGD and colonoscopy tomorrow. Informed consent obtained. Ryne Weinberg MD SA/MOHSEN /[id number]
[2019-06-12] MEDS ORDERED: NIFEDIPINE CR 30 MG TAB PO ONE
--- NOTE | 2019-06-12 03:03 | Progress Note ---
DATE: 06/11/2019 Disregard, entered in error SUBJECTIVE: The patient reports no abdominal pain, tolerating clear liquid diet. DICTATION ENDS HERE Ryne Weinberg MD SA/MOHSEN /[id number]
[2019-06-12 06:57] LABS: BASOPHILS % 0.3 % (0.0-1.0); EOSINOPHILS % 1.1 % (0.0-6.0); HEMATOCRIT 30.4 % (34.2-44.1); HEMOGLOBIN 9.5 g/dL (12.0-16.0); LYMPHOCYTES # (AUTO) 0.5 (1.0-3.2); LYMPHOCYTES % 12.6 % (18.0-39.1); MEAN CORPUSCULAR HEMOGLOBIN 29.5 pg (28-32); MEAN CORPUSCULAR HGB CONC 31.3 g/dL (31-35); MEAN CORPUSCULAR VOLUME 94.4 fL (81-99); MONOCYTES # (AUTO) 0.5 (0.2-0.8); NEUTROPHILS # (AUTO) 2.8 (2.1-6.9); NEUTROPHILS % 73.7 % (38.7-80.0); PLATELET COUNT 154 x10e3/uL (140-360); RED BLOOD COUNT 3.22 x10e6/uL (3.6-5.1)
[2019-06-12 07:28] LABS: ANION GAP 15.5 mmol/L (8-16); CALCIUM 9.5 mg/dL (8.4-10.2); CREATININE, SERUM 0.92 mg/dL (0.57-1.11); POTASSIUM 3.5 mmol/L (3.5-5.1)
[2019-06-12] MEDS: INSULIN LISPRO 100 UNIT/1 ML 3ML VIAL SQ SCH ×4 (07:30→20:27)
[2019-06-12 07:48] VITALS: BP 182/73
[2019-06-12 08:50] LABS: FOLATE 17.2 ng/mL (7.0-15.4)
[2019-06-12] MEDS ORDERED: NIFEDIPINE CR 30 MG TAB PO SCH (09:00)
[2019-06-12] MEDS: PANTOPRAZOLE 40 MG 10ML VIAL IV SCH (09:16)
[2019-06-12] MEDS: GABAPENTIN 300 MG CAP PO SCH ×2 (09:17→20:27)
[2019-06-12] MEDS: NEBIVOLOL 10 MG TAB PO SCH (09:17)
[2019-06-12] MEDS: NIFEDIPINE CR 30 MG TAB PO SCH (09:17)
[2019-06-12] MEDS: HYDRALAZINE HCL 25 MG TAB PO SCH ×2 (09:21→15:00)
[2019-06-12 09:56] VITALS: BP 182/73
[2019-06-12 11:52] VITALS: BP 195/80
[2019-06-12] MEDS: HYDRALAZINE HCL 20 MG/ML VIAL IV PRN ×2 (11:57→16:32)
--- NOTE | 2019-06-12 14:00 | NUR ---
Patient returned from EGC/Colonoscopy and stable, orders in place for low sodium diet. Patient tolerated a sandwich, no distress, will monitor.
--- NOTE | 2019-06-12 15:42 | NUR ---
Call to Dr. Solo regarding consult and he wants orders in place for NPO after mid midnight.
[2019-06-12 15:48] VITALS: BP 193/81
[2019-06-12] MEDS ORDERED: MIDAZOLAM HCL 2 MG/2 ML VIAL ONE (15:57)
[2019-06-12] MEDS ORDERED: FENTANYL CITRATE/PF 100MCG/2 ML INJ ONE (15:57)
--- NOTE | 2019-06-12 16:00 | NUR ---
Call back from Dr. Solo stating Dr. Batista will cover for him tomorrow, ordered for NPO from midnight and stated will see patient later tonight
[2019-06-12] MEDS: CYANOCOBALAMIN INJ 1,000 MCG/ML VIAL IM SCH (16:32)
--- NOTE | 2019-06-12 16:40 | NUR ---
PT GOT 1 UNIT PRBC YESTERDAY, SEPSIS SCREEN PROJECTED DISCHARGE TOMORROW.
[2019-06-12] MEDS ORDERED: LIDOCAINE HCL 2% LOCAL INJ 5 ML SDV VIAL INJ ONE (17:23)
[2019-06-12] MEDS ORDERED: PROPOFOL IV EMULSION 10 MG/ML 20 ML VIAL ONE (17:23)
--- NOTE | 2019-06-12 17:48 | NUR ---
Rounds by Dr. Lin, saw patient and wants Gianni Vogel who did cardiac stents. Called and spoke with executive secretary social welfare and provided Dr. Lin's cell number for doc to doc communication.
--- NOTE | 2019-06-12 17:52 | Diagnostic Imaging Report ---
CT of the abdomen and pelvis, with contrast, 06/12/2019. History: Anemia, GI bleed. Comparison: None available. Technique: Multidetector CT scanning of the abdomen and pelvis was performed from the level of the lung bases to the inferior pubic rami after intravenous administration of contrast. No oral contrast was given. Coronal and sagittal multiplanar reformations were obtained. RADIATION DOSE: Total DLP: 503 mGy*cm Dose modulation, iterative reconstruction, and/or weight based adjustment of the mA/kV was utilized to reduce the radiation dose to as low as reasonably achievable. Discussion: LUNG BASES: There is bibasilar atelectasis with trace bilateral pleural effusions. ABDOMEN: Liver is enlarged measuring over 18 cm in length. There is no focal hepatic abnormality. Cholecystectomy clips are present. The gallbladder, biliary tree, spleen, pancreas, adrenal glands, and kidneys are normal. The hepatic vein, portal vein, and splenic vein are patent. The main portal vein is dilated measuring 15 mm in diameter. The abdominal aorta is calcified but within normal limits for size. Evaluation of bowel is limited without oral contrast. There is no bowel dilatation. Multiple diverticuli are present within the sigmoid colon without evidence of adjacent inflammation.. There is no evidence of adenopathy or free fluid. PELVIS: The bladder is unremarkable. The uterus and adnexa are not visualized. There is no evidence of free fluid or adenopathy. BONES AND SOFT TISSUES: Degenerative changes are present throughout the lumbar spine without evidence of lytic or sclerotic lesion. IMPRESSION: 1. Hepatomegaly without focal hepatic abnormality. Prominence of the portal vein may be seen with portal hypertension, but no ascites or splenomegaly are present. Correlate with LFTs. 2. Colonic diverticulosis without evidence of diverticulitis. 3. Status post cholecystectomy and hysterectomy. Otherwise unremarkable CT of the abdomen and pelvis. Signed by: Jose L Martinez on 06/12/2019 5:49 PM
--- NOTE | 2019-06-12 18:45 | Diagnostic Imaging Report ---
EXAMINATION: CHEST 2 VIEWS INDICATION: Shortness of breath ^SHORTNESS OF BREATH ^[id number] ^1822 COMPARISON: January 18, 2019 FINDINGS: TUBES and LINES: None. LUNGS: Perihilar peribronchial hazy opacity could be due to bronchitis. PLEURA: No pleural effusion or pneumothorax. HEART AND MEDIASTINUM: Prominent heart size with pulmonary vascular congestion. BONES AND SOFT TISSUES: No acute osseous lesion. Soft tissues are unremarkable. UPPER ABDOMEN: No free air under the diaphragm. IMPRESSION: Perihilar peribronchial hazy opacity could be due to bronchitis. Prominent heart size with pulmonary vascular congestion. Signed by: Dr. Kelvin Rodriguez M.D. on 06/12/2019 6:41 PM
[2019-06-12 20:00] VITALS: BP 199/83
[2019-06-12] MEDS: HYDRALAZINE HCL 100 MG TABLET PO SCH (20:27)
--- NOTE | 2019-06-12 20:31 | NUR ---
notified dr. reyes of low grade temp, new orders for tylenol. patient confirmed no allergy to acetaminophen, just codeine. will update charting. notified of low wbc, chest xray results , and continue c/o sob. states "i will take a look at it"
[2019-06-12 20:41] VITALS: BP 199/83
[2019-06-12] MEDS ORDERED: ACETAMINOPHEN 325 MG TAB PO PRN (20:45)
[2019-06-12] MEDS ORDERED: IOPAMIDOL 370 MG/ML 200 ML INFUS..BTL INJ ONE (22:17)
[2019-06-12] MEDS ORDERED: SODIUM CHLORIDE 0.9% 50ML 50 ML ONE (22:17)
--- NOTE | 2019-06-12 23:45 | NUR ---
Dr. Bautista removed as bead wire insulator, Dr. Alex Ghosh- bead wire insulator on case. In to see patient at this time.
[2019-06-13] VITALS: BP 131/65
--- NOTE | 2019-06-13 01:05 | Consultation ---
DATE OF CONSULTATION: 06/12/2019 Cardiac Consultation REASON FOR CONSULTATION: Anemia in a patient who had stents. HISTORY OF PRESENT ILLNESS: 68-year-old lady, very very poor historian. She is now with hypertension, diabetes mellitus, dyslipidemia, and hypothyroidism. Furthermore, she does have very severe end-organ damage secondary to diabetes consistent of peripheral neuropathy and severe proteinuria. In fact, her microalbumin ratio is at 37:70, which indicate almost nephrotic syndrome. She is extremely severely hypertensive on multiple agents. The patient on admission, her hemoglobin was 6.5. She had blood transfusion. She had colonoscopy. She is considered for procedure on her internal hemorrhoids. Of note, the patient seen by several cardiologists. She had her 1st stent many years ago by Dr. Hawley, who is a partner of Dr. Riley Ghosh. In August 2018, she had cardiac cath twice by Dr. Goodman and brandy. Of note, the patient seen recently by Dr. Ghosh. She had a stress test in [facility] and she had been told everything is normal, this was on Saturday. Regardless, the patient does have easy fatigability, shortness of breath on exertion, progressively worse. She was quite anemic. She denied having angina, but she is always short winded. The patient was recently at this institution with hypotension when she took her medication. She was seen by Renal Service. During that admission, she was seen by GI and Surgery. REVIEW OF SYSTEMS: GENERAL: No fever. No chills. HEENT: Decreased hearing. PULMONARY: Easy fatigability, shortness of breath on exertion. CARDIAC: No chest pain, but easy fatigability, shortness of breath on exertion, sleep apnea like symptoms. The patient complained of shortness of breath on activity. GI: As per acute illness. Distended abdomen. The patient denied melena, but she is quite anemic. : Incontinence. MUSCULOSKELETAL: Aches and pain. NEUROLOGY: Tingling and numbness of the lower extremities. ALLERGIES: TRAMADOL AND CODEINE. HOME MEDICATIONS: Current medications include; aspirin and Plavix are on hold. Bystolic 20 mg a day, hydralazine 100 mg t.i.d., Protonix 40 mg a day, and vitamin B12, nifedipine 30 mg a day, Neurontin 900 mg every 12 hours, glipizide 10 mg at bedtime, and levothyroxine 112 mcg a day. SOCIAL HISTORY: She is nonsmoker. She is Non-alcohol drinker. PAST MEDICAL HISTORY: 1. Diabetes mellitus. 2. Severe hypertension. 3. Hypothyroidism. 4. Dyslipidemia. 5. Diabetic neuropathy. 6. Diabetic nephropathy with almost nephrotic range, proteinuria. 7. Coronary artery disease, status post PCI many years ago. The latest PCI was in August 2018, by Dr. Goodman. 8. Cholecystectomy. 9. Appendectomy. 10. Hysterectomy. FAMILY HISTORY: Positive for hypertension, diabetes mellitus, and coronary artery disease. PHYSICAL EXAMINATION: GENERAL: Obese lady. Height of 5 feet 1 inch, and weight of 163 pounds, blood pressure 190/80, heart rate of 70, and respiratory rate of 18. HEENT: Pupils are equal and reactive. NECK: No elevation of jugular venous pulsation. CHEST: Decreased air entry with few crackles. HEART: PMI at 5th left intercostal space. Normal first, second heart sounds. ABDOMEN: Distended. EXTREMITIES: No cyanosis, no clubbing. Decreased pulses. LABORATORY DATA: Most recent chest x-ray was on January 18, 2019, showing mild cardiomegaly. No chest x-ray during this admission. She had CT of abdomen today, the results are not available. No EKG in her chart. Hemoglobin on admission 6.5. Repeat hemoglobin at 9.5, BUN of 36, creatinine of 1.38. Today, BUN and creatinine are normal at 60 and 0.92. IMPRESSION AND PLAN: 1. Anemia, questionable etiology. 2. Distended abdomen, workup is in progress. The patient had CT abdomen and pelvis. 3. Severe hypertension. 4. Debility. 5. Hypercholesteremia. 6. Diabetes mellitus with severe end-organ damage including and nephropathy. 7. Coronary artery disease, status post several PCIs, most recent in August 2018. 8. Recently, the patient had workup by Dr. Riley Ghosh, Cardiology, which negative stress test last Saturday as per patient. Cardiac feldman my recommendation will be as follow: 1. Definitely if the patient does not need any surgical intervention or anything, it is better not to be done till we hear from Dr. Ghosh and confirm the confirm the finding. 2. The patient with severe hypertension, which needs to be addressed. 3. Advanced diabetes mellitus. 4. Debility. 5. Obesity. 6. Coronary artery disease status post multiple intervention. Cardiac feldman, I will try to reach Dr. Riley Ghosh to have him on consult for this patient. The patient needs to have EKG. She needs to have an echo. She needs to have a chest x-ray. Definitely, having Dr. Ghosh and getting in touch with him will help quite a lot to help taking care of this patient. If we believe her recent stress test was normal, then it is okay to proceed with any surgery needed, but we need confirmation if surgery not needed. It is better to wait until she is seen by her petrographer and to be done in an elective fashion. MD ORQUIDEA Hudson/MODCasie /[id number] MTDD
[2019-06-13] MEDS ORDERED: SODIUM CHLORIDE 0.9% 100 ML 100 ML ONE (02:39)
[2019-06-13] MEDS ORDERED: IOPAMIDOL 370 MG/ML 200 ML INFUS..BTL INJ ONE (02:39)
[2019-06-13 04:00] VITALS: BP 184/77
--- NOTE | 2019-06-13 04:21 | Diagnostic Imaging Report ---
CTA CHEST WITH CONTRAST HISTORY: Appearance of mass or thrombus in ascending aorta, abnormal echo COMPARISON: None TECHNIQUE: CT scan of the chest WITH intravenous contrast, using standard protocol. Coronal and sagittal reformats are provided. IV CONTRAST: 100 cc of Isovue-370. RADIATION DOSE: Total DLP: 403.52 mGy*cm Dose modulation, iterative reconstruction, and/or weight based adjustment of the mA/kV was utilized to reduce the radiation dose to as low as reasonably achievable. COMPLICATIONS: None FINDINGS: Lines/tubes: None Lungs and pleura: Mild upper lung zone predominant centrilobular emphysema. Small right and trace left pleural effusions with adjacent atelectasis. Heart and mediastinum: The thyroid gland is normal. The heart and pericardium are within normal limits. Abdomen: Limited evaluation of the upper abdomen. Diffusely decreased attenuation of the liver Lymph nodes: No pathologically enlarged lymph node identified. Multiple small nonspecific mediastinal lymph nodes. Vessels: * Motion artifact partially limits evaluation on this noncardiac gated examination. * Beam hardening artifact from dense contrast within the left subclavian and superior vena cava partially limits regional evaluation. * Scattered atherosclerotic vascular calcifications, including the coronary arteries. * No mass or focal thrombus visible at the proximal aorta. Bones: No acute osseous lesion is identified. Soft tissues: Unremarkable IMPRESSION: 1. Atherosclerotic vascular disease, including coronary atherosclerosis. 2. No focal mass or thrombus visible at the proximal ascending aorta. 3. Hepatic steatosis. Signed by: Dr. John Dominguez D.O., M.M.M. on 06/13/2019 4:18 AM
[2019-06-13] MEDS: HYDRALAZINE HCL 20 MG/ML VIAL IV PRN ×2 (06:02→08:55)
[2019-06-13 06:32] LABS: BASOPHILS % 0.2 % (0.0-1.0); EOSINOPHILS # (AUTO) 0.1 (0.0-0.4); EOSINOPHILS % 1.1 % (0.0-6.0); HEMATOCRIT 28.6 % (34.2-44.1); HEMOGLOBIN 9.2 g/dL (12.0-16.0); LYMPHOCYTES # (AUTO) 0.4 (1.0-3.2); LYMPHOCYTES % 9.6 % (18.0-39.1); MEAN CORPUSCULAR HEMOGLOBIN 30.2 pg (28-32); MEAN CORPUSCULAR HGB CONC 32.2 g/dL (31-35); MEAN CORPUSCULAR VOLUME 93.8 fL (81-99); MONOCYTES # (AUTO) 0.4 (0.2-0.8); MONOCYTES % 8.9 % (4.4-11.3); NEUTROPHILS # (AUTO) 3.5 (2.1-6.9); NEUTROPHILS % 79.5 % (38.7-80.0); PLATELET COUNT 143 x10e3/uL (140-360); RED BLOOD COUNT 3.05 x10e6/uL (3.6-5.1); RED CELL DISTRIBUTION WIDTH 16.6 % (11.7-14.4)
[2019-06-13 07:00] LABS: ALBUMIN/GLOBULIN RATIO 0.9 (0.8-2.0); ANION GAP 12.9 mmol/L (8-16); CALCIUM 8.7 mg/dL (8.4-10.2); CHOL/HDL RATIO 3.3 (3.0-3.6); CREATININE, SERUM 1.23 mg/dL (0.57-1.11); POTASSIUM 3.9 mmol/L (3.5-5.1)
--- NOTE | 2019-06-13 07:08 | NUR ---
Received patient this morning, a/ox3, in bed and call light within reach. Call to Dr. Solo's office to inquire about status of surgery and no answer. Will attempt to reach them again
[2019-06-13 07:19] LABS: THYROID STIMULATING HORMONE 4.663 uIU/mL (0.350-4.940)
[2019-06-13] MEDS: INSULIN LISPRO 100 UNIT/1 ML 3ML VIAL SQ SCH ×2 (07:30→11:30)
--- NOTE | 2019-06-13 07:46 | Consultation ---
DATE OF CONSULTATION: 06/12/2019 Cardiology Consultation Note IDENTIFICATION: This a 68-year-old woman well known to my service. She does have multiple cardiac risk factors including an ex-smoking history of 40-pack years, which she quit 19 years ago, type 2 diabetes mellitus since age 50, hypertension, hyperlipidemia, and history of paternal grandmother with heart stroke in her 80s. She does have history of angioplasty and stents, most recently in July and August [address] Goodman. Altogether, she has had since 1999 angioplasty and stent x3. She denied any association of myocardial infarction with her PTCAS. She was noted on June 02, 2019 to have A low hemoglobin of 7.[address] Saxena's office. It was previously 9.4 in November 2018. She apparently was awaiting colonoscopy scheduled for June 2019. REASON FOR CONSULTATION: Evaluation of perioperative risk in case she needs surgical repair for hemorrhoidectomy. HISTORY OF PRESENT ILLNESS: Ms. Valdez was initially seen in consultation on June 08, 2019. She appears to have been seeing Dr. Goodman until his demise. She stated that at baseline she can walk about 30 feet before she will exhaust, dizziness, and dyspnea. There would be a central chest heaviness, which was almost constant beginning the April 2019. She denies any PND, orthopnea, or peripheral edema. She states that her blood pressure was elevated at times with an inability to talk or walk. These occurred with associated near syncope almost every other day. The corresponded heart rate is typically in the 90s. We did evaluate her in the clinic with an echocardiogram of the heart. The study from June 08, 2019 showed a preserved left ventricular ejection fraction of 55% to 60%. There was mild mitral annular calcification, [id number] mitral regurgitation, mild tricuspid regurgitation and mild elevation of the PA systolic pressure of 47.2 mmHg. She also had an interesting finding of what appeared to be ill defined masses arising from the ascending aortic root. This was suboptimally visualized and we recommended further imaging to clarify. We did also get evaluate her with a Lexiscan, Cardiolite scan. The study was completed at [facility] in June 10, 2019, this showed a preserved left ventricular ejection fraction in ther range of 52% with no active ischemia or infarction. There was normal wall motion. PAST MEDICAL HISTORY: This was notable for a history of hyperlipidemia, diabetes mellitus, thyroid abnormalities, and hypertension. PAST SURGICAL HISTORY: Does include a hysterectomy, angioplasties and stents, and a cholecystectomy. ALLERGIES: SHE HAS NO DRUG ALLERGIES TO MEDICATIONS. SHE HAS NO ALLERGIES TO IODINE CONTRAST. MEDICATIONS: Please see MAR. SOCIAL HISTORY: She does drink 1 cup of coffee daily. There is no history of current tobacco use, alcohol use, or recreational drug use. FAMILY HISTORY: Notable for brother and maternal grandfather with diabetes mellitus and the father, who from Hodgkin's lymphoma. REVIEW OF SYSTEMS: A 14-point review of systems including integumentary, neurological, cardiac, pulmonary, digestive, musculoskeletal and psychiatric systems were all negative and noncontributory. PHYSICAL EXAMINATION: GENERAL: On examination, the patient was in no acute distress. VITAL SIGNS: Showed a blood pressure remain elevated at 199/83, resting heart rate is 75 beats per minute, respiratory rate is 18 breaths per minute. She does run a low-grade temperature at 100.7 degrees Fahrenheit. HEAD AND NECK: She had a normal carotid upstroke and amplitude. No carotid bruits. I cannot appreciate any cervical adenopathy or thyromegaly. CARDIOVASCULAR: The is no jugular venous distention. Auscultation showed a regular S1 and S2. She does have a 2/6 systolic ejection murmur at the base of the heart and the left sternal border. There was also a 2/6 pansystolic murmur at the apex. CHEST: Showed midline trachea. Her chest is clear to auscultation and percussion. ABDOMEN: Soft and nontender. No hepatosplenomegaly. She has normal bowel sounds. There are no mass or bruits. EXTREMITIES: She has no significant peripheral edema. Peripheral pulses are present and equal bilaterally. She does not have any appreciable pallor at this time. LABORATORY DATA: Additional labs; we did have 12-lead EKG that was completed on June 12, 2019 at 1817 hours, this did show a sinus rhythm at 77 beats per minute. She had nonspecific ST segment and depression in leads V5 to V6 and 2, 3, aVF. Other labs; we do have a CBC that was completed on June 12, 2019. This was after transfusion of 2 units packed red blood cells on June 10, 2019 for her presenting hemoglobin of 6.5. At this time, the hemoglobin is stable at 9.5 and hematocrit 30.4%. White blood cell count is 3.74 and platelet count is 154. Serum chemistry from June 12, 2019 showed a BUN and creatinine of 16 and 0.92. Sodium 144 and potassium 3.5. The patient had already undergone upper and lower GI endoscopy following admission to the hospital with Dr. Ordonez. IMPRESSION: Findings from both UGI and LGI endoscopies were significant only for external hemorrhoid on lower GI endoscopy. There was no active bleeding source, to explain the iron deficiency anemia. The patient was sheduled for a surgical consultation. Other findings included a lipoma along with the uncomplicated hemorrhoids. From her cardiac stand point, she should be at an acceptable cardiac risk given her recent negative Lexiscan Cardiolite scan and her preserved left ejection fraction in the echocardiogram. I am concerned about a possible mass from ascending aorta and we will request a CT scan of the chest with contrast preoperatively. Other concurrent problems do include her unexplained anemia, ex-smoking history, type 2 diabetes mellitus, hypertension, hyperlipidemia, and history of thyroid disorder. Her blood pressure remained suboptimally controlled at this time. I would like to reinitiate her home medications including valsartan, nifedipine, Bystolic, and hydralazine. At present, she does not appear to be in any congestive heart failure decompensation. She does have a history of angioplasty and stent x3. However, her Lexiscan Cardiolite Scan would suggest that her stents are open. She does have a history of unspecified renal insufficiency in the past. It appeared to be corrected at this time. She also has a history of hypothyroidism as noted above. The dizziness that she has complained, may be a combination of volume depletion and some elements of vertigo. It appears to be improved after transfusion. RECOMMENDATIONS: As above. We will follow the patient with you. Thank you once again for asking me to participate in the care of your patient. MD СВЕТЛАНА Johnston/MOHSEN /[id number] MTDD
[2019-06-13 08:18] VITALS: BP 189/77
--- NOTE | 2019-06-13 08:18 | NUR ---
Patient seen by Dr. Batista and examine patient and no need for surgical procedure as patient asymptomatic. Dr. Ghosh called and spoke with RN, connected with Dr. Schmitz and clarified resumption of P2Y12 with him. Patient being seen at this time by Dr. Schmitz.
[2019-06-13] MEDS: NEBIVOLOL 10 MG TAB PO SCH (08:54)
[2019-06-13] MEDS: CYANOCOBALAMIN INJ 1,000 MCG/ML VIAL IM SCH (08:54)
[2019-06-13] MEDS: HYDRALAZINE HCL 100 MG TABLET PO SCH (08:54)
[2019-06-13] MEDS: GABAPENTIN 300 MG CAP PO SCH (08:54)
[2019-06-13] MEDS: NIFEDIPINE CR 30 MG TAB PO SCH (08:55)
[2019-06-13] MEDS ORDERED: PANTOPRAZOLE 40 MG 10ML VIAL IV SCH (09:00)
[2019-06-13 10:23] VITALS: BP 189/77
[2019-06-13] MEDS ORDERED: HEMATINIC-FOLI1 EACH PO (10:43)
[2019-06-13] MEDS ORDERED: LEVAQUIN500 MG PO (10:44)
[2019-06-13] MEDS ORDERED: B-12 5,000 MCG1 EACH SL (10:44)
[2019-06-13] MEDS ORDERED: FLAGYL250 MG PO (10:45)
[2019-06-13] MEDS ORDERED: ZOFRAN4 MG SL (10:46)
[2019-06-13] MEDS ORDERED: ZOFRAN8 MG (10:46)
--- NOTE | 2019-06-13 11:06 | Consultation ---
DATE OF CONSULTATION: 06/13/2019 HISTORY OF PRESENT ILLNESS: The patient is a 68-year-old female admitted to the hospital with shortness of breath, found to be anemic with apparently a recent episode of melena. 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 The patient has no complaints of pain. She has not noticed any blood per rectum. She has not noticed any prolapse of hemorrhoids. PAST MEDICAL HISTORY: Significant for previous cholecystectomy, diabetes, hypertension, hyperlipidemia, coronary artery disease, previous stents. MEDICATIONS: Listed in the chart. ALLERGIES: SHE HAS ALLERGIES TO CODEINE AND TRAMADOL. FAMILY HISTORY: Noncontributory. SOCIAL HISTORY: Noncontributory. REVIEW OF SYSTEMS: As stated above shortness of breath. No rectal pain. PHYSICAL EXAMINATION: GENERAL: The patient is awake and alert with significant findings. ABDOMEN: Soft and nontender. RECTAL: There is no significant enlarged external hemorrhoid. No thrombosed hemorrhoid is seen. No rectal mass identified. ASSESSMENT: A 68-year-old female with no findings on exam suggestive of a thrombosed hemorrhoid with no anorectal issues at all. No intervention is needed at this time. Thank you for asking me to see Ms. Valdez. MD DAYNE Benson/MOHSEN /[id number]
--- NOTE | 2019-06-13 11:50 | NUR ---
Rounds by attending and discharged patient. Provided patient with discharge information, prescriptions provided and education on medications. Encouraged to keep f/u appt with GI for completion of further diagnostic tests to identify GI bleed. IV line removed with cath tip in place. Dressing applied.
[2019-06-13 11:56] VITALS: BP 166/74
--- NOTE | 2019-06-13 21:43 | Discharge Summary ---
PRIMARY CARE PHYSICIAN: Dr. Meera Mcgill. CONSULTANTS: 1. Dr. Riley Ghosh. 2. Dr. Dwight Ordonez. FINAL DIAGNOSES: 1. Clhza-iy-wojucfq blood loss anemia, hemoglobin and hematocrit were 6.5 and 21.2 respectively. 2. Status post 2 units of blood transfusion. Hemoglobin and hematocrit stable at 9.2 and 28.6. 3. Stool for occult blood positive. 4. Status post EGD, colonoscopy, finding of uncomplicated internal hemorrhoids, normal esophagus and gastritis. 5. Baseline coronary artery disease with multiple stents, last stent was in August, therefore the patient will remain on Plavix, but will discontinue aspirin. 6. B12 deficiency. 7. Diverticulosis on CT scan of abdomen and pelvis. SUMMARY: The patient is a 68-year-old female, progressively for the past few months dropping her hemoglobin and hematocrit. She was having increasing symptoms of shortness of breath. The patient was seen by Dr. Mcgill. Lab work was done. Hemoglobin was dropped below 7 in the hospital. The patient directly admitted, hemoglobin and hematocrit of 6.5 and 21.2, platelets at 141. The patient because of her symptoms and coronary artery disease received 2 units of blood transfusion. B12 is 117, folic acid is 17.2. The patient is stable. Workup including endoscopy as mentioned above. Subsequently, she also had a CTA of the chest and pelvic CT. No significant abnormality other than hepatomegaly without focal hepatic abnormality. Colonic diverticulosis without evidence of diverticulitis. She is status post cholecystectomy and hysterectomy on CT scan. The patient is stable now, she is comfortable. She is being cleared for going home. No surgical intervention. Discussed with Dr. Riley Ghosh, the patient's chiropractor assistant and he suggested to continue with Plavix and stop the aspirin. She was on full-dose aspirin as an outpatient. The patient will follow up with Dr. Ghosh and Dr. Mcgill, her PCP for repeat hemoglobin and hematocrit as an outpatient. The patient will resume home medications except for aspirin. New prescription is hematinic Plus 1 tablet twice a day, B12 1000 mcg sublingual daily, Levaquin 500 mg daily for 5 days, Flagyl 500 mg b.i.d. for 5 days empirically. Zofran ODT 4 mg sublingual q.4h p.r.n. for nausea and vomiting. The patient is to follow up as an outpatient. Discussed with the patient and family at bedside. MD BIJU Briseno/MOHSEN /[id number]
== END 2019-06-13 12:00 | disposition home or self-care (01) | DRG 812 ==
LOC: IMCU 15:17 → OBSVTOIN 06-11 10:08 → MED/SURG 06-11 21:07
PROVIDERS: ADMIT Internal Medicine; ATTEND Internal Medicine
PROC: 30233N1 Transfusion of Nonautologous Red Blood Cells into Peripheral Vein, Percutaneous Approach (ICD-10-PCS; 2019-06-10)
PROC: 0DB68ZX Excision of Stomach, Via Natural or Artificial Opening Endoscopic, Diagnostic (ICD-10-PCS; 2019-06-12)
PROC: 0DJD8ZZ Inspection of Lower Intestinal Tract, Via Natural or Artificial Opening Endoscopic (ICD-10-PCS; principal; 2019-06-12 13:31)
PROC: 0DB98ZX Excision of Duodenum, Via Natural or Artificial Opening Endoscopic, Diagnostic (ICD-10-PCS; 2019-06-12 13:31)
DX: D62 Acute posthemorrhagic anemia (principal); K92.1 Melena; I25.10 Atherosclerotic heart disease of native coronary artery without angina pectoris; Z95.5 Presence of coronary angioplasty implant and graft; Z79.82 Long term (current) use of aspirin; Z88.5 Allergy status to narcotic agent; Z88.8 Allergy status to other drugs, medicaments and biological substances; E78.5 Hyperlipidemia, unspecified; E03.9 Hypothyroidism, unspecified; E11.42 Type 2 diabetes mellitus with diabetic polyneuropathy; I10 Essential (primary) hypertension; R53.81 Other malaise; E78.00 Pure hypercholesterolemia, unspecified; E11.21 Type 2 diabetes mellitus with diabetic nephropathy; E66.9 Obesity, unspecified; Z68.30 Body mass index [BMI] 30.0-30.9, adult; Z87.891 Personal history of nicotine dependence; Z82.49 Family history of ischemic heart disease and other diseases of the circulatory system; K64.4 Residual hemorrhoidal skin tags; D17.79 Benign lipomatous neoplasm of other sites; K64.8 Other hemorrhoids; K29.70 Gastritis, unspecified, without bleeding; E53.8 Deficiency of other specified B group vitamins; K57.30 Diverticulosis of large intestine without perforation or abscess without bleeding; Z90.49 Acquired absence of other specified parts of digestive tract; Z79.4 Long term (current) use of insulin
CPT/HCPCS: 36415; 43239; 45378; 71046; 71275; 74177; 80048; 80053; 80061; 82270; 82607; 82746; 82948; 83540; 84443; 84466; 85025; 86850; 86900; 86920; 88305; 88312; 93306; G0378; J0360; J1940; J2001; J2250; J3010; J3420; J7050; P9016; Q9967

== ENCOUNTER → 2019-09-07 | Outpatient (CLI) | payer MEDICARE ==
[~2019-09-07] MED LIST changes: +B-12 5,000 MCG1 EACH SL; +DIOVAN320 MG PO; +FLAGYL250 MG PO; +HEMATINIC-FOLI1 EACH PO; +IOPAMIDOL 370 MG/ML 200 ML INFUS..BTL INJ ONE; +LEVAQUIN500 MG PO; +MECLIZINE HCL12.5 MG PO; +SODIUM CHLORIDE 0.9% 100 ML 100 ML ONE; +SODIUM CHLORIDE 0.9% 500ML 500 ML ONE; +TERAZOSIN HCL5 MG PO; +ZOFRAN4 MG SL; +ZOFRAN8 MG
[2019-09-07 12:30] LABS: CREATININE, SERUM 1.43 mg/dL (0.57-1.11)
--- NOTE | 2019-09-07 14:31 | Diagnostic Imaging Report ---
CTA NECK HISTORY: Carotid stenosis COMPARISON: CTA of the head/neck 01/30/2018 and MRI of the brain 01/30/2018 TECHNIQUE: CTA of the neck was performed with intravenous iodine based contrast. Coronal, sagittal, 3-D, and oblique maximum intensity projection reformations were created. One or more of the following dose reduction techniques were used: Automated exposure control, adjustment of the mA and/or kV according to patient size, and/or utilization of iterative reconstruction technique. DISCUSSION: If present, any cervical carotid stenosis will be measured as a percentage relative to the [place] artery distal to the stenosis (NASCET). There is prominent calcified atherosclerosis in the aortic arch and proximal great vessels. Right Carotid: Mild to moderate scattered calcified atherosclerosis is seen throughout the right common carotid artery, right carotid bulb, and distal cervical right internal carotid artery. There is less than 50% focal stenosis in the proximal right internal carotid artery. Left Carotid: Moderate scattered calcified atherosclerosis is seen throughout the left common carotid artery, left carotid bulb, and distal cervical left internal carotid artery. There is up to 70% focal stenosis in the proximal left internal carotid artery. Right vertebral artery: Mild calcified plaque at the right vertebral artery ostium and V2 segment does not cause significant stenosis. Left vertebral artery: Mild scattered calcified plaque in the left vertebral artery V1 and V2 segments does not cause significant stenosis. The intracranial arterial vasculature is partially visualized. Minimal intradural right vertebral artery calcified plaque is present without significant stenosis. Bilateral carotid siphon calcifications are also present without significant stenosis. Additional findings: Bilateral ocular lens replacement. There are mild emphysematous changes in the upper lungs. Mild groundglass opacities are also seen in the upper lungs. Mildly prominent prevascular and paratracheal lymph nodes are nonspecific. The submandibular and parotid glands are atrophic. Mild scattered paranasal sinus mucosal thickening is present. There are mild to moderate degenerative changes throughout the spine. IMPRESSION: 1. Mild to moderate scattered bilateral cervical carotid calcified plaque, left greater than right. Up to 70% focal stenosis in the proximal left internal carotid artery. No significant stenosis on the right. 2. Mild scattered bilateral cervical vertebral artery calcified plaque without significant stenosis. 3. No other cervical CTA abnormalities. Signed by: Dr. Kadeem Gallagher M.D. on 09/07/2019 2:28 PM
== END ==
LOC: CT 11:38
PROVIDERS: ATTEND Internal Medicine Cardiovascular Disease
DX: I65.23 Occlusion and stenosis of bilateral carotid arteries (principal)
CPT/HCPCS: 36415; 70498; 82565; 84520; 96360; J7040; Q9967

== ENCOUNTER → 2019-10-09 | Outpatient (CLI) | payer MEDICARE ==
[~2019-10-09] MED LIST changes: -IOPAMIDOL 370 MG/ML 200 ML INFUS..BTL INJ ONE; -SODIUM CHLORIDE 0.9% 100 ML 100 ML ONE; -SODIUM CHLORIDE 0.9% 500ML 500 ML ONE
--- NOTE | 2019-10-09 08:48 | Diagnostic Imaging Report ---
EXAM: US ABDOMEN COMPLETE DATE: 10/09/2019 7:42 AM INDICATION: Abdominal bloating COMPARISON: CT abdomen and pelvis of 06/12/2019 TECHNIQUE: Transverse and longitudinal [place] scale and color doppler sonographic images of the upper abdomen were obtained. LIVER 17.9 cm in the right midclavicular line. Increased echogenicity of the liver with normal contour, no masses. SPLEEN 12.7 cm in maximum diameter. Normal echogenicity, no masses. GALLBLADDER Status post cholecystectomy. BILE DUCTS No intra nor extra-hepatic biliary dilation. Common bile duct measures 3 mm PANCREAS: Visualized portions are normal. RIGHT KIDNEY: 10.5 cm Echogenicity: Normal Collecting System: No hydronephrosis Stones: None Cyst/Mass: None LEFT KIDNEY: 11.4 cm Echogenicity: Normal Collecting System: No hydronephrosis Stones: None Cyst/Mass: None VESSELS: Aorta: Visualized portions are within normal size limits Inferior Vena Cava: Visualized portions are normal Main Portal Vein: 1.1 cm, normal size with hepatopetal flow. FREE FLUID: None IMPRESSION: Diffuse hepatic steatosis and mild hepatomegaly. Status post cholecystectomy. Signed by: Tapan Campos MD on 10/09/2019 8:44 AM
== END ==
LOC: US 07:34
PROVIDERS: ATTEND Internal Medicine
DX: R14.0 Abdominal distension (gaseous) (principal)
CPT/HCPCS: 76700

== ENCOUNTER → 2020-02-23 | Day surgery (SDC) | payer MEDICARE ==
--- NOTE | 2020-02-19 13:50 | NUR ---
Checked patient temperature: 98.0F via skin probe. Patient denies being out of the country in the last 14 days. Patient denies being around anyone who has been out of the country within the last 14 days. Patient denies being around anyone who has been exposed or diagnosed with COVID-19 within the last 14 days. Patient denies fever, cough, or shortness of breath.
[2020-02-19 14:51] LABS: BASOPHILS % 0.5 % (0.0-1.0); EOSINOPHILS # (AUTO) 0.1 (0.0-0.4); EOSINOPHILS % 1.6 % (0.0-6.0); HEMATOCRIT 33.4 % (34.2-44.1); HEMOGLOBIN 10.8 g/dL (12.0-16.0); LYMPHOCYTES # (AUTO) 0.7 (1.0-3.2); LYMPHOCYTES % 19.5 % (18.0-39.1); MEAN CORPUSCULAR HEMOGLOBIN 28.8 pg (28-32); MEAN CORPUSCULAR HGB CONC 32.3 g/dL (31-35); MEAN CORPUSCULAR VOLUME 89.1 fL (81-99); MONOCYTES # (AUTO) 0.4 (0.2-0.8); MONOCYTES % 9.6 % (4.4-11.3); NEUTROPHILS # (AUTO) 2.5 (2.1-6.9); NEUTROPHILS % 68.5 % (38.7-80.0); PLATELET COUNT 140 x10e3/uL (140-360); RED BLOOD COUNT 3.75 x10e6/uL (3.6-5.1); RED CELL DISTRIBUTION WIDTH 15.1 % (11.7-14.4)
[2020-02-19 15:21] LABS: ALBUMIN 3.9 g/dL (3.5-5.0); ALBUMIN/GLOBULIN RATIO 1.1 (0.8-2.0); ANION GAP 13.3 mmol/L (8-16); CALCIUM 8.7 mg/dL (8.4-10.2); CREATININE, SERUM 1.27 mg/dL (0.57-1.11); POTASSIUM 4.3 mmol/L (3.5-5.1)
--- NOTE | 2020-02-22 16:15 | NUR ---
Patient notified of procedural time changed to 02/23/2020@ 1100. Patient instructed to arrive at 0900. Patient instructed no eating or drinking after midnight. Patient verbalized understanding.
[2020-02-23] VITALS (14 sets, daily range): BP systolic 151–211; BP diastolic 47–88
[~2020-02-23] VITALS: Ht 154.9 cm; Wt 73.9 kg
[~2020-02-23] MED LIST changes: +ALPRAZOLAM 0.5 MG TAB ONE; +ASPIRIN 325 MG TAB ONE; +BIVALRIUDIN 250 MG/VIAL VIAL IV ONE; +CLONIDINE HCL 0.1 MG TAB ONE; +DIPHENHYDRAMINE HCL 25 MG CAP ONE; +FENTANYL CITRATE/PF 100MCG/2 ML INJ ONE; +FEROSUL325 MG PO; +GABAPENTIN400 MG PO; +GLIPIZIDE-METF1 EAC2 PO; +HEPARIN SOD/SOD CHLORIDE 2,000 ML ONE; +HYDRALAZINE HCL 20 MG/ML VIAL ONE; +IOPAMIDOL 370 MG/ML 200 ML INFUS..BTL INJ ONE; +LIDOCAINE HCL 2% LOCAL 20 ML VIAL ONE; +MIDAZOLAM HCL 2 MG/2 ML VIAL ONE; +MORPHINE SULFATE INJ 4 MG/ML INJ 1ML ONE; +PRASUGREL 10 MG TAB ONE; +SODIUM CHLORIDE 0.9% 1000ML 1,000 ML ONE; +SODIUM CHLORIDE 0.9% 50ML 50 ML ONE
--- NOTE | 2020-02-23 11:15 | NUR ---
1115am RECEIVING NOTE [employer]............................................................... Bedside report received from CAM Watson. Identifierx2. Alert oriented and appropriate, PERRLA, respirations even and unlabored to room air. Pulses x4 extremities equal and strong. Pedal pulses PT/DP x4. Rt Tr band site No gross issues pain pallor pressure or dysrhythmia. Skin warm and dry integrity appears. IV 20g to left hand at 100cchr and Angiomax at 24.6cchr. Site presents healthy w/o s/s of infiltration or complaint. Abdomen soft and supple. pt offered toileting, denies need to urinate or defecate. No personal affects with patient. Family at bedside. Pt and family verbalizes understanding of POC. Currently w/o complaint of pain or need. ds/rn
--- NOTE | 2020-02-23 11:29 | Operative Report ---
DATE OF PROCEDURE: 02/23/2020 SURGEON: Yobany Calderon MD INDICATION: Coronary artery disease, abnormal stress test, unstable angina. PROCEDURES PERFORMED: 1. Left heart catheterization, selective coronary angiography. 2. PTCA and stent placement of the right coronary artery. 3. Ultrasound guided access into the right radial artery with image storage for permanent record. 4. Conscious sedation administration. Hemodynamic and neurological monitoring and recovery by livestock laborer nurse with supervision with MD for 65 minute. 5. Deployment of right wrist TR band. COMPLICATIONS: None. RECOMMENDATIONS: Dual antiplatelet therapy for life. DESCRIPTION OF PROCEDURE: Access was obtained in the right radial artery using ultrasound guidance. A 6-[place] sheath was placed. The patient received Angiomax for anticoagulation. Right coronary artery multiple stents with two discrete 95% in-stent restenosis with GUERA-2 flow. Circumflex stent was patent. Distal circumflex 60%. Left anterior descending artery stent was patent. Remaining vessel had diffuse 30% to 50% stenosis. LV end-diastolic pressure of 10. A decision was made to intervene on the right coronary artery. The right coronary artery was cannulated using a JR4 6-[place] guiding catheter. A run-through wire was advanced for support. A GuideLiner was used for ease of stent deployment and predilatation of 1.5 mm balloon. Three overlapping stents 2.25 x 16, 2.5 x 12 and 2.75 x 12 mm were deployed at 20-18 atmospheres respectively. Excellent end result, less than 10% residual stenosis GUERA-3 flow. No complications. Wire and guide sheath removed. TR band applied. The patient was discharged home same day. Yobany Calderon MD K[facility]/MODL /[id number]
--- NOTE | 2020-02-23 13:30 | NUR ---
1330 bp 211/58 medicated Hydralyzine 20mg ivp off of prn orders ds/rn
--- NOTE | 2020-02-23 14:00 | NUR ---
1400p RADIAL COMPRESSION REMOVAL NOTE: Initial Cuff volume 14 cc 1400p -4cc Removed No hematoma/bleeding noted with normal neurovascular function. 1415p -5cc Removed No hematoma/ bleeding noted with normal neurovascular function. 1430p -5cc Removed No hematoma/bleeding noted with normal neurovascular function. Air removal completed. Stasis achieved sterile 2x2,Tegaderm, Coban dressing No hematoma, bleeding noted with normal neurovascular function. Wrist splint in place. Pt instructed on POC. Ds/Rn
--- NOTE | 2020-02-23 14:10 | NUR ---
1410p c/o leg pain (chronic pain) B/p remains elevated Medicate 4mg Morphine Sulfate. Ivp. ds/rn
--- NOTE | 2020-02-23 14:45 | NUR ---
1445p Bp remain elevated [address] Calderon updated with pt status and continued Bp elevation. Ok'd 0.2mg po for elevation of bp ds/rn
--- NOTE | 2020-02-23 16:00 | NUR ---
1600 Bp treneding to 180 systolic will Monitor pt history of HTN issues on x3 b/p meds Md aware and charge nurse Notified of bp issues remains asymptomatic and Normal neurovascular function to rt arm Stasis and TR band secured dc teaching completed. Tolerating po intake and back to baseline Orientation. ds/rn
--- NOTE | 2020-02-23 16:30 | NUR ---
1630p Bp remains elevated 176 systolic Hydralyzine 20mg ivp dressed and ready for dc at bedside. ds/rn
--- NOTE | 2020-02-23 17:00 | NUR ---
1700pm [employer] DISCHARGE NURSING NOTE Pt meets DC criteria. Rt tr band assessed for s/s of complication and presence of hematoma. Skin warm, dry, no discolor, and pulses present. IV removed from left hand Distal tip appears intact. VS WNL. Pt denies pain, sob, or need at this time. Family at BS. Review of discharge paperwork and follow up instructions. verbalized understanding. Pt to wheelchair and transported to front of hospital. Transferred to private vehicle under own strength w/o incident with DC paperwork in hand. - mitzi/pat
== END | disposition home or self-care (01) ==
LOC: CATH LAB 09:09
PROVIDERS: ATTEND Internal Medicine Interventional Cardiology
DX: I25.110 Atherosclerotic heart disease of native coronary artery with unstable angina pectoris (principal); R94.39 Abnormal result of other cardiovascular function study; I11.0 Hypertensive heart disease with heart failure; I50.9 Heart failure, unspecified; E78.00 Pure hypercholesterolemia, unspecified; E11.3519 Type 2 diabetes mellitus with proliferative diabetic retinopathy with macular edema, unspecified eye; Z01.812 Encounter for preprocedural laboratory examination; Z79.02 Long term (current) use of antithrombotics/antiplatelets; Z79.84 Long term (current) use of oral hypoglycemic drugs; Z79.4 Long term (current) use of insulin; Z68.30 Body mass index [BMI] 30.0-30.9, adult; Z95.5 Presence of coronary angioplasty implant and graft; Z82.49 Family history of ischemic heart disease and other diseases of the circulatory system
CPT/HCPCS: 76937; 93454; C1874; C9600; 36415; 80053; 85025; 92928; 99152; 99153; C1725; C1766; C1887; J0360; J0583; J2001; J2250; J2270; J3010; J7030; Q9967